=== PATIENT | male | born 1950 | race African-American/Black ===

== ENCOUNTER 2016-07-11 12:36 | Emergency (ER) | payer OTHER, MEDICARE ==
[2016-07-11] MEDS ORDERED: NORMAL SALINE 1000 ML 1,000 ML IV ONE (13:01)
--- NOTE | 2016-07-11 13:17 | ER Document Report ---
ED General - General Chief Complaint: Altered Mental Status Stated Complaint: POSSIBLE STROKE Time seen by provider: 12:50 Mode of Arrival: Medic Information source: Relative Notes: 65-year-old male presents to emergency department via EMS after called reporting that the patient slumped over in bed. The initial history obtained by EMS was that the patient had a new A fascia in the right lower extremity weakness and he presented as a code stroke. 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 reports that the patient had been sitting up in bed and then slumped over to one side in bed but did not fall or strike his head. Family reports the patient is at his baseline now. The patient still has a persistent aphasia and is not able to answer yes or no but does seem to point to his periumbilical region as if she might be having discomfort there. Family reports patient was in his usual state of health yesterday. They report his current physician is the [facility] in [place] he is supposed to be seeing Dr. Brito with a new [facility] locally in the near future. Family reports he has not recently had fever, cough, or vomiting and other history is unobtainable from patient. Patient appears to urinate on himself at some point this morning Physical Exam: General: Alert, appears well. Somewhat agitated but is mainly seems to be frustration from his inability to speak HEENT: Normocephalic. Atraumatic. PERRLA. Extraocular movements intact. Oropharynx clear. Membranes moist Neck: Supple. Non-tender. JVD no carotid bruits Respiratory: No respiratory distress. Clear and equal breath sounds bilaterally. Well-healed midline sternal incision Cardiovascular: Regular rate and rhythm. PMI not displaced Abdominal: Normal Inspection. Soft, non-tender. No distension. Normal Bowel Sounds. Back: Non-tender. No deformity or step off. Extremities. All warm with 2+ pulses no cyanosis no edema no Homans sign bilaterally Neurological: Patient's has some right-sided neglect but no true gaze deviation to the left. No facial droop is apparent now though EMS reports he did have a prominent right facial droop earlier. Speech is garbled and incoherent there is no tongue deviation to either side. Patient cannot cooperate or follow instructions with formal neurologic testing but is observed to move his left upper extremity with full strength and is able to lift his left lower extremity against gravity. He makes essentially no use of his right upper extremity and only minimal use of his right lower extremity Skin: Warm. Dry. Normal color. TRAVEL OUTSIDE OF THE [place] IN LAST 30 DAYS: No - Related Data Allergies/Adverse Reactions: ibuprofen [From Motrin] Allergy (Severe, Verified 01/04/16 21:19) lips swelling, genitalia swelling, eyes swelling Past Medical History - Social History Smoking Status: Former Smoker Family History: Other - Unable to obtain due to aphasia - Past Medical History Cardiac Medical History: Reports: Hx Coronary Artery Disease, Hx Hypercholesterolemia, Hx Hypertension Denies: Hx Heart Attack Pulmonary Medical History: Denies: Hx Asthma, Hx Bronchitis, Hx COPD, Hx Pneumonia Neurological Medical History: Denies: Hx Cerebrovascular Accident, Hx Seizures Endocrine Medical History: Reports: Hx Diabetes Mellitus Type 1, Hx Diabetes Mellitus Type 2. Denies: Hx Hypothyroidism Renal/ Medical History: Denies: Hx End Stage Renal Disease, Hx Renal Insufficiency GI Medical History: Denies: Hx Gastritis, Hx Gastroesophageal Reflux Disease Musculoskeltal Medical History: Denies Hx Arthritis Past Surgical History: Reports: Hx Orthopedic Surgery - both feet, both knees, back L3 and 5. Denies: Hx Pacemaker - Immunizations Immunizations up to date: Yes Hx Diphtheria, Pertussis, Tetanus Vaccination: Yes Hx Pneumococcal Vaccination: 03/24/12 Review of Systems - Review of Systems -: Yes ROS unobtainable due to patient's medical condition Physical Exam - Vital signs Vitals: Temp Pulse Ox 98.1 F 99 07/11/16 12:50 07/11/16 12:50 Course - Re-evaluation Re-evalutation: 07/11/16 17:29 Family reports the patient has recently been in his baseline state of health prior to the episode this morning. They report he seems back to normal now. 07/11/16 19:19 Patient has remained hemodynamically stable during his stay in the emergency department with no change in his neurologic exam. has been with them in her reports that he seems normal to her she now thinks that he might have taken his warning medicines on an empty stomach and that may be responsible for the episode she saw this morning. A case she is eating now and she is comfortable with discharge. She reports he has no physician currently but is supposed to see Dr. Brito at the [facility] on July 17 nerve reinforced the need for that appointment to be. Also asked her to call 911 or bring him back to emergency department for any further problems but this point I found nothing on this thorough workup for which she requires admission or other treatment - Vital Signs Vital signs: Temp Pulse Resp BP Pulse Ox 98.2 F 14 146/82 H 100 07/11/16 18:50 07/11/16 17:01 07/11/16 17:01 07/11/16 17:01 - Laboratory Result Diagrams: 07/11/16 13:15 07/11/16 14:23 Laboratory results interpreted by me: 07/11/16 07/11/16 07/11/16 13:15 14:23 15:10 RBC 4.17 L Hgb 10.8 L Hct 33.8 L MCH 25.8 L MCHC 31.8 L RDW 16.1 H Monocytes % 13.5 H Carbon Dioxide 31 H Glucose 128 H Total Protein 6.2 L Albumin 3.4 L Urine Blood SMALL H - Diagnostic Test Radiology reviewed: Image reviewed, Reports reviewed - EKG Interpretation by Me Additional EKG results interpreted by me: 07/11/16 13:17 EKG reviewed by myself shows sinus rhythm at 78 with inverted T-wave in V1 and 2 not significantly different than 01/05/2016 Discharge - Discharge Clinical Impression: Syncope Qualifiers: Syncope type: unspecified Qualified Code(s): R55 - Syncope and collapse Condition: Stable Disposition: HOME, SELF-CARE Additional Instructions: Syncopal Episode Syncope (fainting or near-fainting) can occur from many different health problems. Or it can be a simple fainting spell requiring no treatment. It is safe for you to go home, but further evaluation will likely be necessary. Your work-up may include tests for internal bleeding, heart disease, medication problems, or near-strokes. Tests are not always required, however, depending on the nature of your problem. The warning signs of an impending faint include: dizziness, lightheadedness , nausea, hot flashes, tingling, and weakness. If this happens, lay down and put your feet up, then wait until all of these symptoms have passed before standing up again. If these episodes become recurrent, or if you develop chest pain, heart palpitations, mental confusion, blurred vision, or headache, then you should call the physician, or go to the emergency room. See Dr. Brito on Saturday as scheduled. All 1 or return to emergency department for any other episodes of passing out or other problems
[2016-07-11 13:37] LABS: PARTIAL THROMBOPLASTIN TIME 27.4 SEC (23.5-35.8)
[2016-07-11 13:40] LABS: ABSOLUTE EOSINOPHILS # (AUTO) 0.1 10^3/uL (0.0-0.6); ABSOLUTE LYMPHOCYTES (AUTO) 0.8 10^3/uL (0.5-4.7); ABSOLUTE MONOCYTES (AUTO) 0.7 10^3/uL (0.1-1.4); ABSOLUTE NEUT (AUTO) 3.4 10^3/uL (1.7-8.2); BASOPHILS % (AUTO) 0.6 % (0-2); EOSINOPHILS % (AUTO) 1.5 % (0-6); HEMATOCRIT 33.8 % (37.9-51.0); HEMOGLOBIN 10.8 g/dL (13.5-17.0); HGB HCT DIFFERENCE -1.4; LYMPHOCYTES % (AUTO) 15.2 % (13-45); MEAN CORPUSCULAR HEMOGLOBIN 25.8 pg (27.0-33.4); MEAN CORPUSCULAR HGB CONC 31.8 g/dL (32.0-36.0); MEAN CORPUSCULAR VOLUME 81 fl (80-97); MONOCYTES % (AUTO) 13.5 % (3-13); PROTHROMBIN TIME 13.3 SEC (11.4-15.4); RED BLOOD COUNT 4.17 10^6/uL (4.35-5.55); RED CELL DISTRIBUTION WIDTH 16.1 % (11.5-14.0); SEGMENTED NEUTROPHILS % (AUTO) 69.2 % (42-78)
[2016-07-11 15:14] LABS: ALANINE AMINOTRANSFERASE 34 U/L (21-72); ALBUMIN 3.4 g/dL (3.5-5.0); ALKALINE PHOSPHATASE 78 U/L (38-126); ANION GAP 13 (5-19); ASPARTATE AMINO TRANSFERASE 24 U/L (17-59); BILIRUBIN,TOTAL 1.1 mg/dL (0.2-1.3); BLOOD UREA NITROGEN 14 mg/dL (7-20); CALCIUM 8.5 mg/dL (8.4-10.2); CARBON DIOXIDE 31 mmol/L (22-30); CHLORIDE 98 mmol/L (98-107); CREATINE KINASE 62 U/L (55-170); CREATININE RESULT 1.01 mg/dL (0.52-1.25); GLUCOSE 128 mg/dL (75-110); POTASSIUM 3.7 mmol/L (3.6-5.0); SODIUM 141.5 mmol/L (137-145); TOTAL PROTEIN 6.2 g/dL (6.3-8.2)
[2016-07-11 15:21] LABS: CREATINE KINASE MB 0.29 ng/mL (<4.55)
[2016-07-11 15:24] LABS: TROPONIN I < 0.012 ng/mL
--- NOTE | 2016-07-11 18:38 | EKG REPORT ---
SEVERITY:- ABNORMAL ECG - SINUS RHYTHM INFERIOR INFARCT, OLD IRBBB. : Confirmed by: Michael Colindres MD 11-Jul-2016 18:37:32
[2016-07-11 18:48] LABS: APPEARANCE,URINE CLEAR; BILIRUBIN,URINE NEGATIVE (NEGATIVE); GLUCOSE, URINE NEGATIVE (NEGATIVE); KETONES,URINE NEGATIVE (NEGATIVE); LEUKOCYTE ESTERASE,URINE NEGATIVE (NEGATIVE); NITRITE,URINE NEGATIVE (NEGATIVE); PROTEIN,URINE NEGATIVE (NEGATIVE); URINE SPECIFIC GRAVITY 1.014; UROBILINOGEN,URINE NEGATIVE mg/dL (<2.0)
[2016-07-11 19:30] VITALS: BP 174/79
== END 2016-07-11 19:50 | disposition home or self-care (01) ==
LOC: ER 12:36
DX: R55 Syncope and collapse (principal); R41.82 Altered mental status, unspecified; Z87.891 Personal history of nicotine dependence
CPT/HCPCS: 93005; 99285; 96360; 36415; 87086; 82553; 82550; 85025; 85610; 85730; 80053; 81001; 84484; 71010; 70450; 74177; 93010; J7030

== ENCOUNTER 2017-01-17 11:55 | Emergency (ER) | payer OTHER, MEDICARE ==
[2017-01-17 12:25] LABS: ABSOLUTE EOSINOPHILS # (AUTO) 0.1 10^3/uL (0.0-0.6); ABSOLUTE LYMPHOCYTES (AUTO) 1.1 10^3/uL (0.5-4.7); ABSOLUTE MONOCYTES (AUTO) 0.3 10^3/uL (0.1-1.4); ABSOLUTE NEUT (AUTO) 2.2 10^3/uL (1.7-8.2); BASOPHILS % (AUTO) 0.7 % (0-2); EOSINOPHILS % (AUTO) 1.7 % (0-6); HEMATOCRIT 31.2 % (37.9-51.0); HEMOGLOBIN 10.4 g/dL (13.5-17.0); LYMPHOCYTES % (AUTO) 30.3 % (13-45); MEAN CORPUSCULAR HGB CONC 33.5 g/dL (32.0-36.0); MEAN CORPUSCULAR VOLUME 81 fl (80-97); MONOCYTES % (AUTO) 7.4 % (3-13); RED BLOOD COUNT 3.87 10^6/uL (4.35-5.55); RED CELL DISTRIBUTION WIDTH 16.6 % (11.5-14.0); SEGMENTED NEUTROPHILS % (AUTO) 59.9 % (42-78); WHITE BLOOD COUNT 3.7 10^3/uL (4.0-10.5)
--- NOTE | 2017-01-17 12:32 | RADIOLOGY REPORT (SQ) ---
EXAM DESCRIPTION: CHEST SINGLE VIEW COMPLETED DATE/TIME: 01/17/2017 12:23 pm REASON FOR STUDY: syncope COMPARISON: 07/11/2016 EXAM PARAMETERS: NUMBER OF VIEWS: One view. TECHNIQUE: Single frontal radiographic view of the chest acquired. RADIATION DOSE: NA LIMITATIONS: None. FINDINGS: LUNGS AND PLEURA: No opacities, masses or pneumothorax. No pleural effusion. MEDIASTINUM AND HILAR STRUCTURES: No masses. Contour normal. HEART AND VASCULAR STRUCTURES: Heart normal in size. Normal vasculature. BONES: No acute findings. HARDWARE: CABG. OTHER: No other significant finding. IMPRESSION: NO ACUTE RADIOGRAPHIC FINDING IN THE CHEST. TECHNICAL DOCUMENTATION: JOB ID: [id number]
[2017-01-17 12:41] LABS: ALANINE AMINOTRANSFERASE 32 U/L (21-72); ALBUMIN 3.2 g/dL (3.5-5.0); ALKALINE PHOSPHATASE 71 U/L (38-126); ANION GAP 11 (5-19); ASPARTATE AMINO TRANSFERASE 20 U/L (17-59); BILIRUBIN,DIRECT 0.2 mg/dL (0.0-0.4); BILIRUBIN,TOTAL 0.9 mg/dL (0.2-1.3); BLOOD UREA NITROGEN 17 mg/dL (7-20); CALCIUM 7.8 mg/dL (8.4-10.2); CARBON DIOXIDE 22 mmol/L (22-30); CHLORIDE 107 mmol/L (98-107); CREATININE RESULT 1.12 mg/dL (0.52-1.25); GLUCOSE 240 mg/dL (75-110); POTASSIUM 3.5 mmol/L (3.6-5.0)
[2017-01-17 12:53] LABS: TROPONIN I < 0.012 ng/mL
[2017-01-17] MEDS ORDERED: NORMAL SALINE 1000 ML 1,000 ML IV ONE (13:01)
--- NOTE | 2017-01-17 13:01 | ER Document Report ---
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 He slumped over while sitting in the heat he could not be aroused. He also had bowel and bladder incontinence during this time, but family does not think that he had any seizure activity. Patient was given 2 L IV fluids prior to arrival by EMS and family says that he is back to baseline. He was started on 10 mg amlodipine yesterday by primary care physician, but no other new medications. Patient denies chest pain, shortness of breath, nausea, vomiting, fevers, new back pain, hemoptysis or abdominal pain. TRAVEL OUTSIDE OF THE [place] IN LAST 30 DAYS: No - Related Data Allergies/Adverse Reactions: ibuprofen [From Zoombu] Allergy (Severe, Verified 01/17/17 12:54) lips swelling, genitalia swelling, eyes swelling Home Medications: Current Home Medications Acetaminophen [Pain Reliever] 1,000 mg PO BID 01/17/17 [History] Amlodipine Besylate 10 mg PO DAILY 01/17/17 [History] Aspirin [Aspirin 325 mg Tablet] 325 mg PO DAILY 01/17/17 [History] Gabapentin 300 mg PO TID 01/17/17 [History] Omeprazole 20 mg PO QAM 01/17/17 [History] Past Medical History - General Information source: Patient, Relative, Emergency Med Personnel - Social History Smoking Status: Unknown if Ever Smoked Frequency of alcohol use: None Drug Abuse: None Family History: Other - Unable to obtain due to aphasia - Past Medical History Cardiac Medical History: Reports: Hx Coronary Artery Disease, Hx Hypercholesterolemia, Hx Hypertension Denies: Hx Heart Attack Pulmonary Medical History: Denies: Hx Asthma, Hx Bronchitis, Hx COPD, Hx Pneumonia Neurological Medical History: Denies: Hx Cerebrovascular Accident, Hx Seizures Endocrine Medical History: Reports: Hx Diabetes Mellitus Type 1, Hx Diabetes Mellitus Type 2 - diet controlled. Denies: Hx Hypothyroidism Renal/ Medical History: Denies: Hx End Stage Renal Disease, Hx Renal Insufficiency GI Medical History: Denies: Hx Gastritis, Hx Gastroesophageal Reflux Disease Musculoskeltal Medical History: Denies Hx Arthritis Past Surgical History: Reports: Hx Open Heart Surgery - December 2015, Hx Orthopedic Surgery - both feet, both knees, back L3 and 5. Denies: Hx Pacemaker - Immunizations Immunizations up to date: Yes Hx Diphtheria, Pertussis, Tetanus Vaccination: Yes Hx Pneumococcal Vaccination: 03/24/12 Review of Systems - Review of Systems Notes: REVIEW OF SYSTEMS: CONSTITUTIONAL: -fevers, -chills EENT: -eye pain, -difficulty swallowing, -nasal congestion CARDIOVASCULAR:-chest pain, +syncope. RESPIRATORY: -cough, -SOB GASTROINTESTINAL: -abdominal pain, - nausea, -vomiting, -diarrhea GENITOURINARY: -dysuria, -hematuria MUSCULOSKELETAL: -back pain, -neck pain SKIN: -rash or skin lesions. HEMATOLOGIC: -easy bruising or bleeding. LYMPHATIC: -swollen, enlarged glands. NEUROLOGICAL: -altered mental status or loss of consciousness, -headache, - neurologic symptoms PSYCHIATRIC: -anxiety, -depression. ALL OTHER SYSTEMS REVIEWED AND NEGATIVE. Physical Exam - Vital signs Vitals: Resp Pulse Ox 15 96 01/17/17 12:16 01/17/17 12:16 - Notes Notes: PHYSICAL EXAMINATION: GENERAL: Well-appearing, well-nourished and in no acute distress. HEAD: Atraumatic, normocephalic. EYES: Pupils equal round and reactive to light, extraocular movements intact, sclera anicteric, conjunctiva are normal. ENT: nares patent, oropharynx clear without exudates. Moist mucous membranes. NECK: Normal range of motion, supple without lymphadenopathy LUNGS: Breath sounds clear to auscultation bilaterally and equal. No wheezes rales or rhonchi. HEART: Regular rate and rhythm without murmurs ABDOMEN: Soft, nontender, normoactive bowel sounds. No guarding, no rebound. No masses appreciated. EXTREMITIES: Normal range of motion, no pitting or edema. No cyanosis. Strong distal pulses. NEUROLOGICAL: No acute neuro findings. Chronic right-sided weakness PSYCH: Normal mood, normal affect. SKIN: Warm, Dry, normal turgor, no rashes or lesions noted. Course - Re-evaluation Re-evalutation: 66-year-old male presents after brief syncopal episode. No seizure activity witnessed, but he did have loss of bowel and bladder. Lab work all unremarkable and patient blood pressure improved with fluids. He was started on amlodipine yesterday and this may have caused his syncope and low blood pressure. Instructed patient to stop the amlodipine. His bottle was thrown out in the emergency room. Also instructed him to continue to drink plenty of fluids. He is low risk for serious outcomes per [place] Syncope guidelines. The patient to continue to drink plenty of fluids follow-up with his primary care physician for further evaluation and treatment. - Vital Signs Vital signs: Temp Pulse Resp BP Pulse Ox 97.6 F 62 16 93/56 L 95 01/17/17 12:20 01/17/17 12:20 01/17/17 13:01 01/17/17 13:01 01/17/17 13:01 - Laboratory Result Diagrams: 01/17/17 12:03 01/17/17 12:03 Laboratory results interpreted by me: 01/17/17 01/17/17 12:03 12:03 WBC 3.7 L RBC 3.87 L Hgb 10.4 L Hct 31.2 L RDW 16.6 H Potassium 3.5 L Glucose 240 H Calcium 7.8 L Total Protein 6.0 L Albumin 3.2 L Discharge - Discharge Clinical Impression: Syncope Qualifiers: Syncope type: unspecified Qualified Code(s): R55 - Syncope and collapse Condition: Good Disposition: HOME, SELF-CARE Additional Instructions: SYNCOPAL EPISODE: Syncope (fainting or near-fainting) can occur from many different health problems. Or it can be a simple fainting spell requiring no treatment. It is safe for you to go home, but further evaluation will likely be necessary. Your work-up may include tests for internal bleeding, heart disease, medication problems, or near-strokes. Tests are not always required, however, depending on the nature of your problem. The warning signs of an impending faint include: dizziness, lightheadedness , nausea, hot flashes, tingling, and weakness. If this happens, lay down and put your feet up, then wait until all of these symptoms have passed before standing up again. If these episodes become recurrent, or if you develop chest pain, heart palpitations, mental confusion, blurred vision, or headache, then you should call the physician, or go to the emergency room. ALTERED MENTAL STATUS: An altered mental status is a change in the normal functioning of the brain. This alteration of function can range from minor decreased brain function with some forgetfulness and confusion to complete loss of consciousness and coma. There are many possible causes of an altered mental status and include brain injuries such as trauma or strokes, problems with oxygen supply to the brain, fever and infections of the brain and/or elsewhere in the body, metabolic abnormalities such as low or high blood sugar, overdoses or excessive medication ingestion, and mental and psychiatric illnesses. Sometimes the altered mental status resolves and a definite cause is not determined. If a cause for your altered mental status was found, it has likely been corrected. Your evaluation has not shown any condition that requires that you be admitted to the hospital. It is believed that you are safe to lelave and return to your home. If you have a return of your symptoms, you should return for re-evaluation. NORMAL EXAM AND WORKUP: At this time, your examination and workup show no significant abnormality. No significant abnormal physical findings were noted. All laboratory, EKG, and imaging (x-ray, CT scans, ultrasound) studies that were ordered show no significant abnormality. Although your examination and all studies that were ordered showed no significant abnormal finding, there are no examinations and no studies that are 100% accurate. There is always the possibility that some abnormality could exist and not be detected with physical examination or within the limits and capabilities of laboratory and other studies. You should return or follow up as you were instructed on your visit today for further evaluation if your symptoms do not resolve. FOLLOW-UP CARE: If you have been referred to a physician for follow-up care, call the physician s office for an appointment as you were instructed or within the next two days. If you experience worsening or a significant change in your symptoms, notify the physician immediately or return to the Emergency Department at any time for re-evaluation.
[2017-01-17 14:16] VITALS: BP 115/74
--- NOTE | 2017-01-17 17:23 | EKG REPORT ---
SEVERITY:- ABNORMAL ECG - SINUS RHYTHM PROBABLE INFEROLATERAL INFARCT, AGE INDETERM : Confirmed by: Susana Lazar MD 17-Jan-2017 17:23:03
== END 2017-01-17 14:35 | disposition home or self-care (01) ==
LOC: ER 11:55
DX: R55 Syncope and collapse (principal); I10 Essential (primary) hypertension; E78.5 Hyperlipidemia, unspecified; M54.9 Dorsalgia, unspecified; G89.29 Other chronic pain; Z79.899 Other long term (current) drug therapy
CPT/HCPCS: 93005; 99285; 96360; 36415; 82550; 85025; 80053; 84484; 83880; 71010; 93010; J7030

== ENCOUNTER 2017-04-15 21:58 | Emergency (ER) | payer OTHER, MEDICARE ==
[2017-04-16] MEDS ORDERED: ASPIRIN 81 MG TABLET, CHEWABLE PO ONE
--- NOTE | 2017-04-16 | ER Document Report ---
ED Medical Screen (RME) - General Chief Complaint: Cold Symptoms Stated Complaint: FLU LIKE SYMPTOMS Time Seen by Provider: 04/15/17 23:59 Notes: Patient is a 66-year-old male who presents with his to the emergency department complaining of chest discomfort and cough. She states it has been going on for the past 2 days. Tonight he was complaining more of chest pain with coughing. Patient has previous history of MD with CABG with complication of a CVA. [facility] Patient is chest pain-free at this time. TRAVEL OUTSIDE OF THE [place] IN LAST 30 DAYS: No - Related Data Allergies/Adverse Reactions: ibuprofen [From Motrin] Allergy (Severe, Verified 01/17/17 12:54) lips swelling, genitalia swelling, eyes swelling Past Medical History - Past Medical History Cardiac Medical History: Reports: Hx Coronary Artery Disease, Hx Hypercholesterolemia, Hx Hypertension Denies: Hx Heart Attack Pulmonary Medical History: Denies: Hx Asthma, Hx Bronchitis, Hx COPD, Hx Pneumonia Neurological Medical History: Denies: Hx Cerebrovascular Accident, Hx Seizures Endocrine Medical History: Reports: Hx Diabetes Mellitus Type 1, Hx Diabetes Mellitus Type 2 - diet controlled. Denies: Hx Hypothyroidism Renal/ Medical History: Denies: Hx End Stage Renal Disease, Hx Peritoneal Dialysis, Hx Renal Insufficiency GI Medical History: Denies: Hx Gastritis, Hx Gastroesophageal Reflux Disease Musculoskeltal Medical History: Denies Hx Arthritis Past Surgical History: Reports: Hx Open Heart Surgery - December 2015, Hx Orthopedic Surgery - both feet, both knees, back L3 and 5. Denies: Hx Pacemaker - Immunizations Immunizations up to date: Yes Hx Diphtheria, Pertussis, Tetanus Vaccination: Yes Physical Exam - Vital signs Vitals: Resp 20 04/15/17 23:52 - General General appearance: Alert In distress: None - Respiratory Respiratory status: No respiratory distress Chest status: Nontender Breath sounds: Normal Chest palpation: Normal - Cardiovascular Rhythm: Regular Heart sounds: Normal auscultation, S1 appreciated, S2 appreciated Gallop: None auscultated Pulses: Normal: Radial Course - Vital Signs Vital signs: Temp Pulse Resp BP Pulse Ox 20 04/15/17 23:52
[2017-04-16 00:22] LABS: ABSOLUTE EOSINOPHILS # (AUTO) 0.1 10^3/uL (0.0-0.6); ABSOLUTE LYMPHOCYTES (AUTO) 0.9 10^3/uL (0.5-4.7); ABSOLUTE MONOCYTES (AUTO) 0.4 10^3/uL (0.1-1.4); ABSOLUTE NEUT (AUTO) 6.2 10^3/uL (1.7-8.2); BASOPHILS % (AUTO) 0.6 % (0-2); EOSINOPHILS % (AUTO) 0.9 % (0-6); HEMOGLOBIN 13.3 g/dL (13.5-17.0); HGB HCT DIFFERENCE -0.1; MEAN CORPUSCULAR HEMOGLOBIN 26.8 pg (27.0-33.4); MEAN CORPUSCULAR HGB CONC 33.2 g/dL (32.0-36.0); MEAN CORPUSCULAR VOLUME 81 fl (80-97); MONOCYTES % (AUTO) 5.4 % (3-13); RED BLOOD COUNT 4.96 10^6/uL (4.35-5.55); RED CELL DISTRIBUTION WIDTH 15.6 % (11.5-14.0); SEGMENTED NEUTROPHILS % (AUTO) 81.1 % (42-78); WHITE BLOOD COUNT 7.7 10^3/uL (4.0-10.5)
[2017-04-16] MEDS ORDERED: HYDROCODONE/ACETAMINOPHEN 5-325 MG TABLET PO ONE (00:42)
[2017-04-16] MEDS ORDERED: ONDANSETRON 4 MG TAB.RAPDIS PO ONE (00:42)
--- NOTE | 2017-04-16 00:43 | ER Document Report ---
ED General - General Chief Complaint: Cold Symptoms Stated Complaint: FLU LIKE SYMPTOMS Time Seen by Provider: 04/15/17 23:59 Notes: Patient is a 66-year-old male that comes emergency department for chief complaint of 2 days of cough and pain in his chest. 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 Patient does not smoke, he does not have asthma or COPD. No fevers reported. No vomiting, patient is eating slightly less since yesterday. Past medical history of hypertension, type 2 diabetes, he also takes 20 mg of Lasix daily. [facility]. TRAVEL OUTSIDE OF THE [place] IN LAST 30 DAYS: No - Related Data Allergies/Adverse Reactions: ibuprofen [From Motrin] Allergy (Severe, Verified 01/17/17 12:54) lips swelling, genitalia swelling, eyes swelling Past Medical History - General Information source: Patient, Relative - Social History Smoking Status: Former Smoker Frequency of alcohol use: None Drug Abuse: None Lives with: Family Family History: Reviewed & Not Pertinent, Other - Unable to obtain due to aphasia - Past Medical History Cardiac Medical History: Reports: Hx Coronary Artery Disease, Hx Hypercholesterolemia, Hx Hypertension Denies: Hx Heart Attack Pulmonary Medical History: Denies: Hx Asthma, Hx Bronchitis, Hx COPD, Hx Pneumonia Neurological Medical History: Denies: Hx Cerebrovascular Accident, Hx Seizures Endocrine Medical History: Reports: Hx Diabetes Mellitus Type 2 - diet controlled. Denies: Hx Hypothyroidism Renal/ Medical History: Denies: Hx End Stage Renal Disease, Hx Peritoneal Dialysis, Hx Renal Insufficiency GI Medical History: Denies: Hx Gastritis, Hx Gastroesophageal Reflux Disease Musculoskeltal Medical History: Denies Hx Arthritis Past Surgical History: Reports: Hx Open Heart Surgery - December 2015, Hx Orthopedic Surgery - both feet, both knees, back L3 and 5. Denies: Hx Pacemaker - Immunizations Immunizations up to date: Yes Hx Diphtheria, Pertussis, Tetanus Vaccination: Yes Hx Pneumococcal Vaccination: 03/24/12 Review of Systems - Review of Systems Constitutional: No symptoms reported EENT: No symptoms reported Cardiovascular: See HPI Respiratory: See HPI Gastrointestinal: No symptoms reported Genitourinary: No symptoms reported Male Genitourinary: No symptoms reported Musculoskeletal: No symptoms reported Skin: No symptoms reported Hematologic/Lymphatic: No symptoms reported Neurological/Psychological: No symptoms reported Physical Exam - Vital signs Vitals: Resp 20 04/15/ 23:52 Interpretation: Normal - General General appearance: Appears well, Alert In distress: None - HEENT Head: Normocephalic, Atraumatic Eyes: Normal Pupils: PERRL - Respiratory Respiratory status: No respiratory distress. No: Respiratory distress, Tachypnea Chest status: Tender - There is some tenderness with palpation over the general chest wall, nonspecific, no induration, deformity, or other abnormalities noted Breath sounds: Nonproductive cough - Occasional congested sounding nonproductive cough. No: Decreased air movement, Rales, Rhonchi, Stridor, Wheezing Chest palpation: Normal - Cardiovascular Rhythm: Regular. No: Tachycardia Heart sounds: Normal auscultation, S1 appreciated, S2 appreciated Murmur: No - Abdominal Inspection: Normal Distension: No distension Bowel sounds: Normal Tenderness: Nontender. No: Tender, Guarding Organomegaly: No organomegaly - Back Back: Normal, Nontender. No: Tender - Extremities General upper extremity: Normal inspection, Nontender, Normal color, Normal ROM , Normal temperature General lower extremity: Normal inspection, Nontender, Normal color, Normal ROM , Normal temperature, Normal weight bearing. No: Madi's sign - Neurological Neuro grossly intact: Yes Cognition: Normal Orientation: AAOx4 [place] Coma Scale Eye Opening: Spontaneous [place] Coma Scale Verbal: Oriented [place] Coma Scale Motor: Obeys Commands [place] Coma Scale Total: 15 Speech: Normal Motor strength normal: LUE, LLE. No: RUE, RLE Sensory: Normal - Psychological Associated symptoms: Normal affect, Normal mood - Skin Skin Temperature: Warm Skin Moisture: Dry Skin Color: Normal Course - Re-evaluation Re-evalutation: Patient is well-appearing on my exam, he has some discomfort and occasional congested cough but no respiratory distress, no fever, no hypoxia, no hypotension. Chest x-ray unremarkable. CBC unremarkable. Chemistry shows mild hypernatremia, patient is reportedly still drinking but has been drinking fluids a little less over the past couple of days. Cardiac enzymes negative. Discussed with patient and , they are concerned because of patient's productive cough and the pain with cough, they asked for treatment for both, after discussion agreed to treat patient prophylactically with doxycycline because of patient's age and progression of congested cough over the past 3 days , agreed to give him minimal cough/pain management along with stool softener, discussed follow-up and return precautions in detail, patient and state understanding and agreement. - Vital Signs Vital signs: Temp Pulse Resp BP Pulse Ox 98.1 F 76 18 130/72 H 97 04/16/17 02:40 04/16/17 02:40 04/16/17 02:40 04/16/17 02:40 04/16/17 02:40 - Laboratory Result Diagrams: 04/16/17 00:07 04/16/17 00:07 Laboratory results interpreted by me: 04/16/17 04/16/17 00:07 00:07 Hgb 13.3 L MCH 26.8 L RDW 15.6 H Seg Neutrophils % 81.1 H Lymphocytes % 12.0 L Sodium 149.2 H Glucose 165 H Direct Bilirubin 0.5 H Discharge - Discharge Clinical Impression: Cough Chest pain Qualifiers: Chest pain type: unspecified Qualified Code(s): R07.9 - Chest pain, unspecified Condition: Stable Disposition: HOME, SELF-CARE Additional Instructions: Workup does not show any concerning abnormalities. Pain in the chest is probably from the coughing. I suspect you have bronchitis. Because of congested cough with chest pains, recommendation is to take the antibiotic as prescribed, take the pain/cough medicine only if needed, if you do take it also take the stool softener to avoid constipation. Follow up with your Provider. Return to the ED for any concerning or worsening symptoms including fevers, difficulty breathing, vomiting, etc. Prescriptions: Docusate Sodium [Colace 100 mg Capsule] 100 mg PO ASDIR PRN #30 capsule PRN Reason: Doxycycline Hyclate 100 mg PO BID #14 capsule Hydrocodone/Acetaminophen [[place] 5-325 mg Tablet] 0.5 - 1 tab PO ASDIR #8 tablet Referrals: SAY LORENZANA MD [Primary Care Provider] - Follow up as needed
[2017-04-16 00:48] LABS: ALANINE AMINOTRANSFERASE 51 U/L (21-72); ALBUMIN 4.7 g/dL (3.5-5.0); ALKALINE PHOSPHATASE 91 U/L (38-126); ANION GAP 16 (5-19); ASPARTATE AMINO TRANSFERASE 25 U/L (17-59); BILIRUBIN,DIRECT 0.5 mg/dL (0.0-0.4); BILIRUBIN,TOTAL 0.7 mg/dL (0.2-1.3); BLOOD UREA NITROGEN 20 mg/dL (7-20); CALCIUM 9.4 mg/dL (8.4-10.2); CARBON DIOXIDE 28 mmol/L (22-30); CHLORIDE 105 mmol/L (98-107); CREATINE KINASE 83 U/L (55-170); CREATININE RESULT 1.17 mg/dL (0.52-1.25); GLUCOSE 165 mg/dL (75-110); POTASSIUM 4.1 mmol/L (3.6-5.0); SODIUM 149.2 mmol/L (137-145); TOTAL PROTEIN 8.1 g/dL (6.3-8.2)
[2017-04-16 01:05] LABS: CREATINE KINASE MB 0.38 ng/mL (<4.55)
[2017-04-16 01:11] LABS: TROPONIN I < 0.012 ng/mL
--- NOTE | 2017-04-16 01:17 | RADIOLOGY REPORT (SQ) ---
EXAM DESCRIPTION: CHEST SINGLE VIEW COMPLETED DATE/TIME: 04/16/2017 12:18 am REASON FOR STUDY: chest pain, cough COMPARISON: 01/17/2017. EXAM PARAMETERS: NUMBER OF VIEWS: One view. TECHNIQUE: Single frontal radiographic view of the chest acquired. RADIATION DOSE: NA LIMITATIONS: None. FINDINGS: LUNGS AND PLEURA: No opacities, masses or pneumothorax. No pleural effusion. Moderate isa g volumes. MEDIASTINUM AND HILAR STRUCTURES: No masses. Contour normal. HEART AND VASCULAR STRUCTURES: Heart normal in size. Normal vasculature. BONES: No acute findings. HARDWARE: Median sternotomy. Left upper abdominal clips. OTHER: No other significant finding. IMPRESSION: No acute cardiopulmonary findings. TECHNICAL DOCUMENTATION: JOB ID: [id number]
[2017-04-16 02:53] VITALS: BP 130/72
--- NOTE | 2017-04-16 08:09 | EKG REPORT ---
SEVERITY:- ABNORMAL ECG - SINUS RHYTHM PROBABLE INFERIOR INFARCT, OLD CONSIDER POSTERIOR INFARCT : Confirmed by: Wili Contreras 16-Apr-2017 08:08:18
== END 2017-04-16 02:40 | disposition home or self-care (01) ==
LOC: ER 21:58
DX: R05 Cough (principal); R07.9 Chest pain, unspecified; I25.10 Atherosclerotic heart disease of native coronary artery without angina pectoris; E78.00 Pure hypercholesterolemia, unspecified; Z86.73 Personal history of transient ischemic attack (TIA), and cerebral infarction without residual deficits; Z95.1 Presence of aortocoronary bypass graft; Z88.6 Allergy status to analgesic agent
CPT/HCPCS: 93005; 99284; 36415; 82553; 82550; 85025; 80053; 84484; 71010; 93010; S0119

== ENCOUNTER 2017-05-11 17:18 | Emergency (ER) | payer OTHER, MEDICARE ==
--- NOTE | 2017-05-11 18:23 | ER Document Report ---
ED Syncope and Near Syncope - General Chief Complaint: Syncope Stated Complaint: DIZZY Time Seen by Provider: 05/11/17 17:43 Mode of Arrival: Stretcher Information source: Patient, Relative TRAVEL OUTSIDE OF THE [place] IN LAST 30 DAYS: No - HPI Patient complains to provider of: Nearly fainting Episode witnessed (by whom): Yes Symptoms prior to episode: Dizziness, Sweaty Position/Activity at time of episode: Sitting Quality of pain: No pain Context: Almost passed out Injury location: None Current symptoms: None/feels back to normal Similar symptoms previously: Yes Recently seen / treated by doctor: Yes Notes: Patient is a 66-year-old male with a history of diabetes, hypertension, high cholesterol, [place] and CVA, who presents to the emergency room via EMS for complaints of near syncopal episode with low heart rate and low blood pressure, daughter states that she was called by her mother because patient was sitting at the table, was sweating, pale and "out of it", patient stored to confirm when she arrived at the house several minutes later she did find her father in the state, she took his pulse and states it was low, and initial blood pressure at home was 88/50, patient was recently started on a higher dose of metoprolol, at time of my initial evaluation he reports feeling much better and wants to leave, he does have a history of a CVA with right-sided deficits as well as speech impairment but his daughter is able to understand what he is saying, he is moving all extremities - Related Data Allergies/Adverse Reactions: ibuprofen [From Motrin] Allergy (Severe, Verified 01/17/17 12:54) lips swelling, genitalia swelling, eyes swelling Home Medications: Current Home Medications Fluoxetine HCl 30 mg PO QAM 05/11/17 [History] Furosemide 20 mg PO QAM 05/11/17 [History] Metformin HCl [Metformin HCl ER] 500 mg PO DAILY 05/11/17 [History] Metoprolol Tartrate 12.5 mg PO DAILY 05/11/17 [History] Past Medical History - General Information source: Patient, Relative - Social History Smoking Status: Unknown if Ever Smoked Chew tobacco use (# tins/day): No Frequency of alcohol use: None Drug Abuse: None Family History: Reviewed & Not Pertinent, Other - Unable to obtain due to aphasia Patient has suicidal ideation: No Patient has homicidal ideation: No - Past Medical History Cardiac Medical History: Reports: Hx Coronary Artery Disease, Hx Hypercholesterolemia, Hx Hypertension Denies: Hx Heart Attack Pulmonary Medical History: Denies: Hx Asthma, Hx Bronchitis, Hx COPD, Hx Pneumonia Neurological Medical History: Denies: Hx Cerebrovascular Accident, Hx Seizures Endocrine Medical History: Reports: Hx Diabetes Mellitus Type 1, Hx Diabetes Mellitus Type 2 - diet controlled. Denies: Hx Hypothyroidism Renal/ Medical History: Denies: Hx End Stage Renal Disease, Hx Peritoneal Dialysis, Hx Renal Insufficiency GI Medical History: Denies: Hx Gastritis, Hx Gastroesophageal Reflux Disease Musculoskeltal Medical History: Denies Hx Arthritis Past Surgical History: Reports: Hx Open Heart Surgery - December 2015, Hx Orthopedic Surgery - both feet, both knees, back L3 and 5. Denies: Hx Pacemaker - Immunizations Immunizations up to date: Yes Hx Diphtheria, Pertussis, Tetanus Vaccination: Yes Hx Pneumococcal Vaccination: 03/24/12 Review of Systems - Review of Systems Constitutional: Diaphoresis EENT: No symptoms reported Cardiovascular: See HPI, Syncope - Near syncope Respiratory: No symptoms reported Gastrointestinal: No symptoms reported Genitourinary: No symptoms reported Male Genitourinary: No symptoms reported Musculoskeletal: No symptoms reported Skin: No symptoms reported Hematologic/Lymphatic: No symptoms reported Neurological/Psychological: No symptoms reported -: Yes All other systems reviewed and negative Physical Exam - Vital signs Vitals: Temp Pulse BP Pulse Ox 97.5 F 56 L 101/54 L 98 05/11/17 17:58 05/11/17 17:58 05/11/17 17:58 05/11/17 17:58 Interpretation: Bradycardic - General General appearance: Appears well, Alert In distress: None - HEENT Head: Normocephalic, Atraumatic Eyes: Normal Conjunctiva: Normal Extraocular movements intact: Yes Eyelashes: Normal Pupils: PERRL - Respiratory Respiratory status: No respiratory distress Chest status: Nontender Breath sounds: Normal Chest palpation: Normal - Cardiovascular Rhythm: Regular Heart sounds: Normal auscultation Murmur: No - Abdominal Inspection: Normal Distension: No distension Bowel sounds: Normal Tenderness: Nontender Organomegaly: No organomegaly - Back Back: Normal, Nontender - Extremities General upper extremity: Normal inspection, Nontender, Normal color, Normal ROM , Normal temperature General lower extremity: Normal inspection, Nontender, Normal color, Normal ROM , Normal temperature, Normal weight bearing. No: Madi's sign - Neurological Cognition: Normal Orientation: AAOx4 [place] Coma Scale Eye Opening: Spontaneous [place] Coma Scale Verbal: Oriented [place] Coma Scale Motor: Obeys Commands [place] Coma Scale Total: 15 Speech: Dysarthria Motor strength normal: LUE, LLE. No: RUE - 4 out of 5 strength, RLE - 5 strength Sensory: Normal - Psychological Associated symptoms: Normal affect, Normal mood - Skin Skin Temperature: Warm Skin Moisture: Dry Skin Color: Normal Course - Re-evaluation Re-evalutation: 05/11/17 23:53 Lab findings show elevated creatinine at 1.7, symptoms likely related to orthostatic hypotension from dehydration, IV fluids were given and patient was discharged with instructions to hold the additional dose of metoprolol and follow-up with the primary care provider in the next 2-3 days, or return if symptoms worsen, patient and daughter at bedside acknowledge understanding and agreement with this plan - Vital Signs Vital signs: Temp Pulse Resp BP Pulse Ox 97.5 F 56 L 16 127/69 H 97 05/11/17 17:58 05/11/17 18:18 05/11/17 20:01 05/11/17 20:01 05/11/17 20:01 - Laboratory Result Diagrams: 05/11/17 19:02 05/11/17 19:02 Laboratory results interpreted by me: 05/11/17 05/11/17 19:02 19:02 Hgb 12.0 L Hct 35.6 L RDW 15.9 H Seg Neutrophils % 83.4 H Lymphocytes % 11.2 L Sodium 145.6 H BUN 27 H Creatinine 1.70 H Est GFR ( Amer) 49 L Est GFR (Non-Af Amer) 40 L Glucose 224 H Creatine Kinase 47 L - EKG Interpretation by [place] EKG shows normal: Sinus rhythm Rate: Bradycardia Discharge - Discharge Clinical Impression: Dehydration, Near syncope, Acute renal insufficiency Condition: Stable Disposition: HOME, SELF-CARE Instructions: Dehydration ([facility]), Near Syncopal Episode ([facility]) Additional Instructions: Follow up with your primary care provider in one to 2 days. Return to the emergency room immediately if symptoms worsen or any additional concerns. Referrals: SAY LORENZANA MD [Primary Care Provider] - Follow up as needed
[2017-05-11 19:15] LABS: ABSOLUTE EOSINOPHILS # (AUTO) 0.1 10^3/uL (0.0-0.6); ABSOLUTE LYMPHOCYTES (AUTO) 0.8 10^3/uL (0.5-4.7); ABSOLUTE MONOCYTES (AUTO) 0.3 10^3/uL (0.1-1.4); ABSOLUTE NEUT (AUTO) 6.1 10^3/uL (1.7-8.2); BASOPHILS % (AUTO) 0.6 % (0-2); EOSINOPHILS % (AUTO) 0.7 % (0-6); HEMATOCRIT 35.6 % (37.9-51.0); HGB HCT DIFFERENCE 0.4; LYMPHOCYTES % (AUTO) 11.2 % (13-45); MEAN CORPUSCULAR HEMOGLOBIN 27.5 pg (27.0-33.4); MEAN CORPUSCULAR HGB CONC 33.7 g/dL (32.0-36.0); MEAN CORPUSCULAR VOLUME 82 fl (80-97); MONOCYTES % (AUTO) 4.1 % (3-13); RED BLOOD COUNT 4.36 10^6/uL (4.35-5.55); RED CELL DISTRIBUTION WIDTH 15.9 % (11.5-14.0); SEGMENTED NEUTROPHILS % (AUTO) 83.4 % (42-78); WHITE BLOOD COUNT 7.4 10^3/uL (4.0-10.5)
[2017-05-11 19:56] LABS: ALANINE AMINOTRANSFERASE 33 U/L (21-72); ALBUMIN 3.9 g/dL (3.5-5.0); ALKALINE PHOSPHATASE 74 U/L (38-126); ANION GAP 14 (5-19); ASPARTATE AMINO TRANSFERASE 20 U/L (17-59); BILIRUBIN,DIRECT 0.3 mg/dL (0.0-0.4); BILIRUBIN,TOTAL 0.5 mg/dL (0.2-1.3); BLOOD UREA NITROGEN 27 mg/dL (7-20); CALCIUM 8.9 mg/dL (8.4-10.2); CARBON DIOXIDE 25 mmol/L (22-30); CHLORIDE 107 mmol/L (98-107); CREATINE KINASE 47 U/L (55-170); GLUCOSE 224 mg/dL (75-110); POTASSIUM 4.6 mmol/L (3.6-5.0); SODIUM 145.6 mmol/L (137-145); TOTAL PROTEIN 6.8 g/dL (6.3-8.2)
[2017-05-11] MEDS ORDERED: NORMAL SALINE 1000 ML 1,000 ML IV PRN (20:03)
[2017-05-11 20:07] LABS: CREATINE KINASE MB 0.35 ng/mL (<4.55)
[2017-05-11 20:10] LABS: TROPONIN I < 0.012 ng/mL
[2017-05-11 21:02] VITALS: BP 127/69
--- NOTE | 2017-05-12 09:21 | EKG REPORT ---
SEVERITY:- ABNORMAL ECG - SINUS RHYTHM PROBABLE INFERIOR INFARCT, OLD ANTERIOR T WAVE INVERSION : Confirmed by: Wili Contreras 12-May-2017 09:21:00
== END 2017-05-11 21:02 | disposition home or self-care (01) ==
LOC: ER 17:18
DX: E86.0 Dehydration (principal); R55 Syncope and collapse; N28.9 Disorder of kidney and ureter, unspecified; R42 Dizziness and giddiness; I25.10 Atherosclerotic heart disease of native coronary artery without angina pectoris; E78.00 Pure hypercholesterolemia, unspecified; I10 Essential (primary) hypertension; E11.9 Type 2 diabetes mellitus without complications; Z88.6 Allergy status to analgesic agent
CPT/HCPCS: 93005; 99284; 96360; 36415; 82553; 82550; 85025; 80053; 84484; 93010; J7030

== ENCOUNTER 2018-08-16 14:16 | Inpatient (IN) | payer OTHER, MEDICARE ==
[2018-08-16 15:02] LABS: INTERNATIONAL RATION (INR) 1.04; PROTHROMBIN TIME 14.1 SEC (11.4-15.4)
[2018-08-16 15:03] LABS: PARTIAL THROMBOPLASTIN TIME 33.7 SEC (23.5-35.8)
[2018-08-16 15:04] LABS: ABSOLUTE BASOPHILS # (AUTO) 0.1 10^3/uL (0.0-0.2); ABSOLUTE MONOCYTES (AUTO) 0.9 10^3/uL (0.1-1.4); BASOPHILS % (AUTO) 0.6 % (0-2); EOSINOPHILS % (AUTO) 0.1 % (0-6); HEMATOCRIT 38.3 % (37.9-51.0); HEMOGLOBIN 12.9 g/dL (13.5-17.0); LYMPHOCYTES % (AUTO) 7.2 % (13-45); MEAN CORPUSCULAR HEMOGLOBIN 27.3 pg (27.0-33.4); MEAN CORPUSCULAR HGB CONC 33.6 g/dL (32.0-36.0); MEAN CORPUSCULAR VOLUME 81 fl (80-97); MONOCYTES % (AUTO) 6.5 % (3-13); PLATELET COUNT 254 10^3/uL (150-450); RED BLOOD COUNT 4.72 10^6/uL (4.35-5.55); SEGMENTED NEUTROPHILS % (AUTO) 85.6 % (42-78); TOTAL CELLS COUNTED % (AUTO) 100 %
[2018-08-16 15:30] LABS: ALANINE AMINOTRANSFERASE 11 U/L (21-72); ALBUMIN 4.7 g/dL (3.5-5.0); ALKALINE PHOSPHATASE 88 U/L (38-126); ANION GAP 10 (5-19); ASPARTATE AMINO TRANSFERASE 37 U/L (17-59); BILIRUBIN,DIRECT 0.3 mg/dL (0.0-0.4); BILIRUBIN,TOTAL 1.5 mg/dL (0.2-1.3); BLOOD UREA NITROGEN 16 mg/dL (7-20); CALCIUM 9.2 mg/dL (8.4-10.2); CARBON DIOXIDE 29 mmol/L (22-30); CHLORIDE 103 mmol/L (98-107); CREATINE KINASE 787 U/L (55-170); GLUCOSE 138 mg/dL (75-110); POTASSIUM 3.8 mmol/L (3.6-5.0); SODIUM 142.2 mmol/L (137-145); TOTAL PROTEIN 8.3 g/dL (6.3-8.2)
[2018-08-16 15:38] LABS: CREATINE KINASE MB 0.91 ng/mL (<4.55); TROPONIN I 0.032 ng/mL
--- NOTE | 2018-08-16 15:57 | ER Document Report ---
ED Dizziness/Weakness - General Chief Complaint: General Weakness Stated Complaint: WEAKNESS Time Seen by Provider: 08/16/18 15:06 Notes: 68-year-old male history of previous stroke affecting his whole right side, inability to talk but does understand and comprehend. Is ambulatory with a cane. Family member states that he has been coughing a lot recently and increased weakness. he denies any pain at this time. TRAVEL OUTSIDE OF THE [place] IN LAST 30 DAYS: No - HPI Patient complains to provider of: Weakness Onset: This morning Onset/Duration: Gradual Quality of pain: Achy Severity: Moderate Associated symptoms: Other - Coughing - Related Data Allergies/Adverse Reactions: ibuprofen [From Motrin] Allergy (Severe, Verified 01/17/17 12:54) lips swelling, genitalia swelling, eyes swelling Past Medical History - General Information source: Patient, Relative - Social History Smoking Status: Unknown if Ever Smoked Frequency of alcohol use: None Drug Abuse: None Lives with: Family Family History: Reviewed & Not Pertinent, Other - Unable to obtain due to aphasia - Past Medical History Cardiac Medical History: Reports: Hx Coronary Artery Disease, Hx Hyperc holesterolemia, Hx Hypertension Denies: Hx Heart Attack Pulmonary Medical History: Denies: Hx Asthma, Hx Bronchitis, Hx COPD, Hx Pneumonia Neurological Medical History: Denies: Hx Cerebrovascular Accident, Hx Seizures Endocrine Medical History: Reports: Hx Diabetes Mellitus Type 1, Hx Diabetes Mellitus Type 2 - diet controlled. Denies: Hx Hypothyroidism Renal/ Medical History: Denies: Hx End Stage Renal Disease, Hx Peritoneal Dialysis, Hx Renal Insufficiency GI Medical History: Denies: Hx Gastritis, Hx Gastroesophageal Reflux Disease Musculoskeletal Medical History: Denies Hx Arthritis Past Surgical History: Reports: Hx Open Heart Surgery - December 2015, Hx Orthopedic Surgery - both feet, both knees, back L3 and 5. Denies: Hx Pacemaker - Immunizations Immunizations up to date: Yes Hx Diphtheria, Pertussis, Tetanus Vaccination: Yes Hx Pneumococcal Vaccination: 03/24/12 Review of Systems - Review of Systems Constitutional: Weakness. denies: Fever, Malaise EENT: denies: Double vision, Difficulty swallowing, Mouth pain Cardiovascular: denies: Chest pain, Palpitations, Lightheaded Respiratory: Cough, Short of breath. denies: Hurts to breathe Gastrointestinal: denies: Abdominal pain, Diarrhea, Nausea Genitourinary: denies: Burning, Dysuria, Discharge Musculoskeletal: denies: Back pain, Muscle pain, Leg swelling Skin: denies: Change in color, Dryness, Lesions, Lumps, Rash Hematologic/Lymphatic: denies: Anemia, Blood clots, Easy bleeding, Easy bruising Neurological/Psychological: Weakness. denies: Confusion, Dementia Physical Exam - Vital signs Vitals: Resp Pulse Ox 21 H 98 08/16/18 15:05 08/16/18 15:05 Interpretation: Normal - General General appearance: Appears well, Alert - HEENT Head: Normocephalic, Atraumatic Eyes: Normal Pupils: PERRL - Respiratory Respiratory status: No respiratory distress Chest status: Nontender Breath sounds: Normal Chest palpation: Normal - Cardiovascular Rhythm: Regular Heart sounds: Normal auscultation Murmur: No - Abdominal Inspection: Normal Distension: No distension Bowel sounds: Normal Tenderness: Nontender Organomegaly: No organomegaly - Back Back: Normal, Nontender - Extremities General upper extremity: Normal inspection, Nontender, Normal color, Normal ROM, Normal temperature, Other - Contracture noted of the right upper extremity General lower extremity: Normal inspection, Nontender, Normal color, Normal temperature, Other - Paralysis of the right lower extremity. No: Madi's sign - Neurological Neuro grossly intact: Yes Cognition: Normal [place] Coma Scale Verbal: Oriented [place] Coma Scale Motor: Obeys Commands Speech: Expressive aphasia Motor strength normal: LUE, LLE. No: RUE, RLE Sensory: Normal Notes: he has sequela of previous stroke affecting the right upper extremity and right lower extremity with contractions patient has no facial asymmetry at this time. Has expressive aphasia. Patient has no pronator drift of the left upper extremity or left lower extremity - Psychological Associated symptoms: Normal affect, Normal mood - Skin Skin Temperature: Warm Skin Moisture: Dry Skin Color: Normal Course - Re-evaluation Re-evalutation: 08/16/18 20:41 Patient reportedly with new onset of weakness. Swallow study was performed at the bedside and patient did fail. Reportedly patient is unable to walk. More likely patient has had a subacute stroke. There is a possibility as well that he could have aspirated as he does have slight elevated WBC count and I was initially concerned on the chest x-ray that he could potentially have a pneumonia. Antibiotics were given. I did consult with hospitalist and we will admit for further workup at this time. - Vital Signs Vital signs: Temp Pulse Resp BP Pulse Ox 18 149/98 H 99 08/16/18 19:01 08/16/18 19:00 08/16/18 19:01 - Laboratory Result Diagrams: 08/16/18 14:45 08/16/18 14:45 Laboratory results interpreted by me: 08/16/18 08/16/18 08/16/18 14:45 14:45 18:49 WBC 14.0 H Hgb 12.9 L RDW 16.0 H Seg Neutrophils % 85.6 H Lymphocytes % 7.2 L Absolute Neutrophils 12.0 H Est GFR (Non-Af Amer) 58 L Glucose 138 H Total Bilirubin 1.5 H ALT 11 L Creatine Kinase 787 H Total Protein 8.3 H Urine Blood MODERATE H Ur Leukocyte Esterase TRACE H Discharge - Discharge Clinical Impression: Weakness Condition: Good Disposition: ADMITTED INPATIENT Admitting Provider: [facility] Admitted: [facility]
--- NOTE | 2018-08-16 16:01 | RADIOLOGY REPORT (SQ) ---
EXAM DESCRIPTION: CT HEAD WITHOUT COMPLETED DATE/TIME: 08/16/2018 3:50 pm REASON FOR STUDY: AMS COMPARISON: 07/11/2016 TECHNIQUE: Axial images acquired through the brain without intravenous contrast. Images reviewed wi th bone, brain and subdural windows. Additional sagittal and coronal reconstructions were generated. Images stored on PACS. All CT scanners at this facility use dose modulation, iterative reconstruction, and/or weight based d osing when appropriate to reduce radiation dose to as low as reasonably achievable (ALARA). [facility]: Dose Right [facility]: CareDose [facility]: Dose Right [facility]: Teradose 4D [facility]: Smart Nukotoys RADIATION DOSE: CT Rad equipment meets quality standard of care and radiation dose reduction techniq ues were employed. CTDIvol: 53.2 mGy. DLP: 1070 mGy-cm.mGy. LIMITATIONS: None. FINDINGS: VENTRICLES: Prominent. CEREBRUM: No masses. No hemorrhage. No midline shift. Old large left MCA infarct. Areas of low de nsity in the white matter most likely due to chronic micro-vascular ischemic change. No evidence for acute infarction. CEREBELLUM: No masses. No hemorrhage. No alteration of density. No evidence for acute infarction. EXTRAAXIAL SPACES: Age-related involutional change. No fluid collections. No masses. ORBITS AND GLOBE: No intra- or extraconal masses. Normal contour of globe without masses. CALVARIUM: No fracture. PARANASAL SINUSES: No fluid or mucosal thickening. SOFT TISSUES: No mass or hematoma. OTHER: No other significant finding. IMPRESSION: Old infarct. No acute findings. EVIDENCE OF ACUTE STROKE: NO. TECHNICAL DOCUMENTATION: JOB ID: [id number] Quality ID # [id number]: Final reports with documentation of one or more dose reduction techniques (e.g., Au tomated exposure control, adjustment of the mA and/or kV according to patient size, use of iterative reconstruction technique) 2010 [employer]- All Rights Reserved Reading location - IP/workstation name: [email or web address]
--- NOTE | 2018-08-16 16:02 | RADIOLOGY REPORT (SQ) ---
EXAM DESCRIPTION: CHEST SINGLE VIEW COMPLETED DATE/TIME: 08/16/2018 3:40 pm REASON FOR STUDY: AMS COMPARISON: 07/11/2016 EXAM PARAMETERS: NUMBER OF VIEWS: One view. TECHNIQUE: Single frontal radiographic view of the chest acquired. RADIATION DOSE: NA LIMITATIONS: None. FINDINGS: LUNGS AND PLEURA: No opacities, masses or pneumothorax. No pleural effusion. MEDIASTINUM AND HILAR STRUCTURES: No masses. Contour normal. HEART AND VASCULAR STRUCTURES: Heart normal in size. Normal vasculature. BONES: No acute findings. HARDWARE: CABG. OTHER: No other significant finding. IMPRESSION: NO ACUTE RADIOGRAPHIC FINDING IN THE CHEST. TECHNICAL DOCUMENTATION: JOB ID: [id number] [employer]- All Rights Reserved Reading location - IP/workstation name: [email or web address]
[2018-08-16] MEDS ORDERED: CEFTRIAXONE INJ 1000 MG VIAL IV ONE (17:21)
[2018-08-16] MEDS ORDERED: ASPIRIN 325 MG TABLET PO ONE (17:21)
--- NOTE | 2018-08-16 17:45 | EKG REPORT ---
SEVERITY:- ABNORMAL ECG - SINUS RHYTHM PROBABLE INFERIOR INFARCT, OLD : Confirmed by: Michael Colindres MD 16-Aug-2018 17:45:28
[2018-08-16 19:02] LABS: APPEARANCE,URINE CLEAR; BILIRUBIN,URINE NEGATIVE (NEGATIVE); COLOR,URINE YELLOW; GLUCOSE, URINE NEGATIVE (NEGATIVE); KETONES,URINE NEGATIVE (NEGATIVE); LEUKOCYTE ESTERASE,URINE TRACE (NEGATIVE); NITRITE,URINE NEGATIVE (NEGATIVE); PROTEIN,URINE NEGATIVE (NEGATIVE); URINE SPECIFIC GRAVITY 1.009; UROBILINOGEN,URINE NEGATIVE mg/dL (<2.0)
[2018-08-16] MEDS ORDERED: ASPIRIN 300 MG SUPP, RECTAL PR ONE (20:21)
[2018-08-16 21:00] LABS: CREATINE KINASE MB 0.66 ng/mL (<4.55); TROPONIN I 0.027 ng/mL
[2018-08-16] MEDS ORDERED: ACETAMINOPHEN 650 MG SUPP.RECT PR PRN (21:18)
[2018-08-16] MEDS ORDERED: LABETALOL HCL INJ 20 MG/4 ML DISP.SYRIN IV PRN (21:18)
[2018-08-16] MEDS ORDERED: GLUCAGON,HUMAN RECOMB 1 MG INJ SUBCUT PRN (21:30)
[2018-08-16] MEDS ORDERED: DEXTROSE 50%-WATER 25 GM/50 ML DISP.SYRIN IV PRN ×2 (21:30)
[2018-08-16] MEDS ORDERED: NALBUPHINE HCL INJ 10 MG/1 ML AMPULE IV PRN (21:31)
[2018-08-16] MEDS ORDERED: NITROGLYCERIN 0.4 MG/TAB 25 TAB/BOTTLE SL PRN (21:31)
[2018-08-16] MEDS ORDERED: NICOTINE 21 MG/24 HR PATCH.TD24 TD PRN (21:31)
[2018-08-16] MEDS: FAMOTIDINE INJ/PF 20 MG/2 ML SDV IV SCH (22:49)
--- NOTE | 2018-08-17 04:11 | PDOC H&P ---
History of Present Illness Admission Date/PCP: 08/16/18 20:37 RICHAR FITZPATRICK DO Patient complains of: New onset increased weakness of right side History of Present Illness: BERTHA WIGGINS JR is a 68 year old male who presented to the emergency room with his family complaining of new onset increased right-sided weakness with inability to walk and an associated new onset frequent cough exacerbated by attempts at eating and/or drinking. The new symptoms were noticed upon his waking this morning and have been continuously present without change since that time. 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 He denies current pain and agrees with the history of new changes. In the emergency room and CAT scan showed evidence of his previous left hemisphere middle cerebral artery infarct with no new changes or evidence of intracranial hemorrhage. With these findings it was felt patient should be admitted for further evaluation and treatment per the stroke protocol. Past Medical History Past Medical History: Due to the patient's expressive aphasia the ability to obtain complete and reliable information for a past medical history, social history, past surgical history and family history as well as review of systems is somewhat limited and requires the use of alternative sources such as family members as well as current and previous records. Cardiac Medical History: Reports: Coronary Artery Disease, Hyperlipidema, Hypertension Denies: Myocardial Infarction Pulmonary Medical History: Denies: Asthma, Bronchitis, Chronic Obstructive Pulmonary Disease (COPD), Pneumonia EENT Medical History: Reports: None Neurological Medical History: Reports: Ischemic CVA Denies: Seizures Endocrine Medical History: Reports: Diabetes Mellitus Type 2 - diet controlled Denies: Hyperthyroidism, Hypothyroidism Renal/ Medical History: Denies: Chronic Kidney Disease, Nephrolithiasis Malignancy Medical History: Reports: None GI Medical History: Denies: Cirrhosis, Gastroesophageal Reflux Disease, Hepatitis Musculoskeltal Medical History: Denies: Arthritis, Gout Skin Medical History: Denies: Eczema, Psoriasis Psychiatric Medical History: Denies: Alcohol Dependency, Substance Abuse, Tobacco Dependency Traumatic Medical History: Reports: None Hematology: Denies: Anemia, Bleeding Tendencies Infectious Medical History: Reports: None Past Surgical History Past Surgical History: Due to the patient's expressive aphasia the ability to obtain complete and reliable information for a past medical history, social history, past surgical history and family history as well as review of systems is somewhat limited and requires the use of alternative sources such as family members as well as current and previous records. Past Surgical History: Reports: Orthopedic Surgery - both feet, both knees, back L3 and 5 Social History Information Source: Patient Lives with: Family Smoking Status: Never Smoker Frequency of Alcohol Use: None Hx Recreational Drug Use: No Drugs: None Hx Prescription Drug Abuse: No Past Social History Note: Due to the patient's expressive aphasia the ability to obtain complete and reliable information for a past medical history, social history, past surgical history and family history as well as review of systems is somewhat limited and requires the use of alternative sources such as family members as well as current and previous records. - Advance Directive Resuscitation Status: Full Code Surrogate healthcare decision maker:: Spouse Family History Family History: DM, Other - Tuberculosis Family History: Due to the patient's expressive aphasia the ability to obtain complete and reliable information for a past medical history, social history, past surgical history and family history as well as review of systems is somewhat limited and requires the use of alternative sources such as family members as well as current and previous records. Parental Family History Reviewed: Yes Children Family History Reviewed: No Sibling(s) Family History Reviewed.: Yes Medication/Allergy Home Medications: Atorvastatin Calcium 80 mg PO QPM 01/04/16 Tamsulosin HCl [Flomax 0.4 mg Cap.sr] 0.4 mg PO DAILY 01/04/16 Amlodipine Besylate 5 mg PO DAILY 01/17/17 Aspirin [Aspirin 325 mg Tablet] 325 mg PO DAILY 01/17/17 Gabapentin 300 mg PO TID 01/17/17 Omeprazole 20 mg PO QAM 01/17/17 Fluoxetine HCl 30 mg PO QAM 05/11/17 Furosemide 20 mg PO QAM 05/11/17 Metformin HCl [Metformin HCl ER] 500 mg PO DAILY 05/11/17 Metoprolol Tartrate 12.5 mg PO DAILY 05/11/17 Allergies/Adverse Reactions: ibuprofen [From Motrin] Allergy (Severe, Verified 01/17/17 12:54) lips swelling, genitalia swelling, eyes swelling Review of Systems Review of Systems: Due to the patient's expressive aphasia the ability to obtain complete and reliable information for a past medical history, social history, past surgical history and family history as well as review of systems is somewhat limited and requires the use of alternative sources such as family members as well as current and previous records. Constitutional: ABSENT: chills, fever(s) Eyes: ABSENT: other - Eye pain, discharge Ears: ABSENT: other - Ear pain, discharge Nose, Mouth, and Throat: PRESENT: as per HPI, other - New onset difficulty swallowing as it causes cough. ABSENT: mouth pain, sore throat Cardiovascular: ABSENT: chest pain, dyspnea on exertion Respiratory: PRESENT: as per HPI, cough - New onset. ABSENT: hemoptysis Gastrointestinal: PRESENT: as per HPI, dysphagia - New-onset. ABSENT: abdominal pain, diarrhea Genitourinary: PRESENT: as per HPI. ABSENT: dysuria, hematuria Musculoskeletal: PRESENT: other - New onset right-sided weakness. ABSENT: back pain Integumentary: ABSENT: pruritus, rash Neurological: PRESENT: as per HPI, focal weakness. ABSENT: convulsions Hematologic/Lymphatic: ABSENT: easy bleeding, easy bruising Physical Exam Vital Signs: Temp Pulse Resp BP Pulse Ox 18 149/98 H 99 08/16/18 19:01 08/16/18 19:00 08/16/18 19:01 General appearance: PRESENT: no acute distress, cooperative, other - Understands communications will and is able to nod yes or no and can make one word answers of yes or no at times. Head exam: PRESENT: atraumatic, normocephalic Eye exam: PRESENT: conjunctiva pink. ABSENT: scleral icterus Ear exam: PRESENT: normal external ear exam. ABSENT: bleeding, drainage Mouth exam: PRESENT: dry mucosa, neck supple Neck exam: ABSENT: thyromegaly, tracheal deviation Respiratory exam: PRESENT: clear to auscultation vidhi, symmetrical, unlabored Cardiovascular exam: PRESENT: RRR. ABSENT: clicks, gallop, rubs Pulses: PRESENT: normal radial pulses, normal dorsalis pedis pul Vascular exam: PRESENT: normal capillary refill. ABSENT: pallor GI/Abdominal exam: PRESENT: normal bowel sounds, soft Rectal exam: PRESENT: deferred Extremities exam: ABSENT: joint swelling, pedal edema, tenderness Musculoskeletal exam: PRESENT: other - Dense right hemiparesis noted. ABSENT: deformity, dislocation Neurological exam: PRESENT: alert, awake, motor sensory deficit - Right hemiparesis, aphasic. ABSENT: CN II-XII grossly intact - Right facial weakness, aphasia, dysarthria, gross dysphagia Psychiatric exam: PRESENT: appropriate affect, normal mood, other - Exam limited by aphasia Skin exam: PRESENT: dry, intact, warm. ABSENT: jaundice, rash, urticaria Results Laboratory Results: 08/16/18 14:45 08/16/18 14:45 08/16/18 08/16/18 08/16/18 14:45 14:45 18:49 WBC 14.0 H RBC 4.72 Hgb 12.9 L Hct 38.3 MCV 81 MCH 27.3 MCHC 33.6 RDW 16.0 H Plt Count 254 Seg Neutrophils % 85.6 H Lymphocytes % 7.2 L Monocytes % 6.5 Eosinophils % 0.1 Basophils % 0.6 Absolute Neutrophils 12.0 H Absolute Lymphocytes 1.0 Absolute Monocytes 0.9 Absolute Eosinophils 0.0 Absolute Basophils 0.1 Sodium 142.2 Potassium 3.8 Chloride 103 Carbon Dioxide 29 Anion Gap 10 BUN 16 Creatinine 1.23 Est GFR ( Amer) > 60 Est GFR (Non-Af Amer) 58 L Glucose 138 H Calcium 9.2 Total Bilirubin 1.5 H AST 37 ALT 11 L Alkaline Phosphatase 88 Total Protein 8.3 H Albumin 4.7 Urine Color YELLOW Urine Appearance CLEAR Urine pH 5.0 Ur Specific [place] 1.009 Urine Protein NEGATIVE Urine Glucose (UA) NEGATIVE Urine Ketones NEGATIVE Urine Blood MODERATE H Urine Nitrite NEGATIVE Ur Leukocyte Esterase TRACE H Urine WBC (Auto) 3 Urine RBC (Auto) 3 08/16/18 08/16/18 08/16/18 14:45 14:45 20:05 Creatine Kinase 787 H 739 H CK-MB (CK-2) 0.91 Troponin I 0.032 08/16/18 20:05 Creatine Kinase CK-MB (CK-2) 0.66 Troponin I 0.027 Impressions: Chest X-Ray 08/16/18 14:26 IMPRESSION: NO ACUTE RADIOGRAPHIC FINDING IN THE CHEST. Head CT 08/16/18 14:26 IMPRESSION: Old infarct. No acute findings. EVIDENCE OF ACUTE STROKE: NO. Assessment & Plan - Diagnosis (1) Right sided weakness Is this a current diagnosis for this admission?: Yes Plan: Due to the new onset of increased right-sided weakness and dysphasia the patient will be evaluated with an MRI of the head as well as an MRA of the head and neck. He will be treated with aspirin 300 mg rectally on a daily basis until he is able to take oral medications. He will have available Nubain 10 mg IV every 3 hours as needed for pain. Patient will otherwise be treated per the stroke protocol with evaluations by physical therapy, occupational therapy and speech therapy as well as close monitoring by nursing staff and a multidisciplinary approach to the patient's ongoing care. Due to the associated dysphagia a formal swallow study will be accomplished by speech therapy and the patient will be maintained n.p.o. until that time so that he may be treated safely when he is able to resume oral intake if that is possible. (2) HTN (hypertension) Qualifiers: Hypertension type: unspecified Qualified Code(s): I10 - Essential (primary) hypertension Is this a current diagnosis for this admission?: Yes Plan: The patient's blood pressure will be controlled with intravenous labetalol administered on a as needed basis to maintain blood pressure less than 160 systolic and less than 100 diastolic. (3) Diabetes mellitus type 2 in nonobese Is this a current diagnosis for this admission?: Yes Plan: Patient's blood sugar will be monitored every 4 hours with regular insulin given on a sliding scale for hyperglycemia. Since he is n.p.o. he will also be monitored for hypoglycemia in the same fashion with appropriate intravenous dex trose given as needed. (4) Hyperlipidemia Qualifiers: Hyperlipidemia type: unspecified Qualified Code(s): E78.5 - Hyperlipidemia, unspecified Is this a current diagnosis for this admission?: Yes Plan: Patient's current hyperlipidemia therapy will be assessed with a lipid profile. He will be restarted on his statin medication as soon as he is able to tolerate oral medications (5) GERD (gastroesophageal reflux disease) Qualifiers: Esophagitis presence: esophagitis presence not specified Qualified Code(s): K21.9 - Gastro-esophageal reflux disease without esophagitis Is this a current diagnosis for this admission?: Yes Plan: Patient will be unable to take oral medications or food initially and as such he will be given Pepcid 20 mg IV every 12 hours to reduce gastric acid production and decrease symptoms of gastroesophageal reflux. (6) BPH (benign prostatic hyperplasia) Qualifiers: Lower urinary tract symptom presence: unspecified whether lower urinary tract symptoms present Qualified Code(s): N40.0 - Benign prostatic hyperplasia without lower urinary tract symptoms Is this a current diagnosis for this admission?: Yes Plan: Patient's urine output will be closely monitored during his hospital course as he is currently unable to take oral medications and may require catheterization if he is unable to void. (7) Leukocytosis Qualifiers: Leukocytosis type: unspecified Qualified Code(s): D72.829 - Elevated white blood cell count, unspecified Is this a current diagnosis for this admission?: Yes Plan: Patient's leukocytosis will be evaluated by daily CBC evaluations. No obvious source of infection is noted and less there is a obvious infection to treat antibiotics will not be used empirically at this time. - Time Time Spent: 30 to 50 Minutes Critical Time spent with patient: Less than 15 minutes Medications reviewed and adjusted accordingly: Yes Anticipated discharge: SNF - Inpatient Certification Based on my medical assessment, after consideration of the patient's comorbidities, presenting symptoms, or acuity I expect that the services needed warrant INPATIENT care.: Yes I certify that my determination is in accordance with my understanding of Medicare's requirements for reasonable and necessary INPATIENT services [42 CFR 412.3e].: Yes Medical Necessity: Significant Comorbidiites Make Outpatient Treatment Too Risky, Need Close Monitoring Due to Risk of Patient Decompensation, Need For Continuous Telemetry Monitoring, Need for Neurological Checks, Risk of Complication if Not Cared For in Hospital
[2018-08-17 06:07] LABS: HEMATOCRIT 33.4 % (37.9-51.0); HEMOGLOBIN 11.3 g/dL (13.5-17.0); MEAN CORPUSCULAR HEMOGLOBIN 27.3 pg (27.0-33.4); MEAN CORPUSCULAR HGB CONC 33.9 g/dL (32.0-36.0); MEAN CORPUSCULAR VOLUME 81 fl (80-97); PLATELET COUNT 209 10^3/uL (150-450); RED BLOOD COUNT 4.13 10^6/uL (4.35-5.55); RED CELL DISTRIBUTION WIDTH 15.7 % (11.5-14.0); WHITE BLOOD COUNT 9.4 10^3/uL (4.0-10.5)
[2018-08-17 06:26] LABS: ANION GAP 10 (5-19); BLOOD UREA NITROGEN 14 mg/dL (7-20); CALCIUM 8.6 mg/dL (8.4-10.2); CARBON DIOXIDE 27 mmol/L (22-30); CHLORIDE 106 mmol/L (98-107); CREATINE KINASE 586 U/L (55-170); GLUCOSE 105 mg/dL (75-110); POTASSIUM 3.8 mmol/L (3.6-5.0); SODIUM 142.6 mmol/L (137-145); TRIGLYCERIDES 60 mg/dL (<150)
[2018-08-17 06:36] LABS: DIRECT LDL 100 mg/dL (<100)
[2018-08-17] MEDS: FAMOTIDINE INJ/PF 20 MG/2 ML SDV IV SCH ×2 (09:56→21:41)
[2018-08-17] MEDS: FONDAPARINUX SODIUM INJ 2.5 MG/0.5 ML DISP.SYRIN SUBCUT SCH (09:59)
[2018-08-17] MEDS ORDERED: ASPIRIN 300 MG SUPP, RECTAL PR SCH (10:00)
--- NOTE | 2018-08-17 13:42 | RADIOLOGY REPORT (SQ) ---
EXAM DESCRIPTION: MRA HEAD WITHOUT COMPLETED DATE/TIME: 08/17/2018 1:29 pm REASON FOR STUDY: new right weakness dysphagia/cough COMPARISON: None. TECHNIQUE: Axial 3-D [id number] acquisition imaging performed through the brain in the area of t he [place]. Images reformatted using 3-D MIPS. LIMITATIONS: None. FINDINGS: SOURCE IMAGES: No unexpected findings on source images. No large masses. 3-D MIP: No aneurysm. No occlusions. No significant stenosis. OTHER: No other significant finding. IMPRESSION: NORMAL MRA OF THE [place]. TECHNICAL DOCUMENTATION: JOB ID: [id number] [employer]- All Rights Reserved Reading location - IP/workstation name: [email or web address]
--- NOTE | 2018-08-17 13:46 | RADIOLOGY REPORT (SQ) ---
EXAM DESCRIPTION: MRI HEAD WITHOUT COMPLETED DATE/TIME: 08/17/2018 1:30 pm REASON FOR STUDY: new right weakness dysphagia/cough COMPARISON: None. TECHNIQUE: Multiplanar imaging includes non-contrasted T1, T2, FLAIR, and diffusion with ADC map seq uences. Images stored on PACS. LIMITATIONS: Motion. FINDINGS: ANATOMY: No anomalies. Normal vascular flow voids. Pituitary fossa normal. CSF SPACES: Atrophy induced prominence of ventricles and CSF spaces. CEREBRUM: Old large infarct left parietal lobe MCA territory. There is associated T2 shine through. High signal intensity lesions scattered throughout the white matter on FLAIR imaging with distributi on suggesting micro-vascular ischemic changes. No evidence of hemorrhage, mass, or extraaxial fluid collection. POSTERIOR FOSSA: No signal alteration. No hemorrhage. No edema, masses or mass effect. Internal jarvis tory canals, cerebello-pontine angles, mastoids normal. DIFFUSION IMAGING: Series 3, image 17, there is a punctate focus of abnormal high signal on diffusion and dark signal on ADC map along the medial margin of the old left parietal infarct. ORBITS: No masses. Globes normal. PARANASAL SINUSES: No fluid levels. Mucosa normal. OTHER: No other significant finding. IMPRESSION: Tiny nonhemorrhagic acute lacunar infarct along the medial margin of the chronic left MC A territory infarct. EVIDENCE OF ACUTE STROKE: YES. LEFT MCA. TECHNICAL DOCUMENTATION: JOB ID: [id number]- All Rights Reserved Reading location - IP/workstation name: [email or web address]
--- NOTE | 2018-08-17 13:47 | RADIOLOGY REPORT (SQ) ---
EXAM DESCRIPTION: MRA NECK WITHOUT COMPLETED DATE/TIME: 08/17/2018 1:29 pm REASON FOR STUDY: new right weakness dysphagia/cough COMPARISON: None. TECHNIQUE: Axial 2-D volume acquisition imaging through the extracranial carotid and vertebral arter ies with reformatting using 3-D MIPS. LIMITATIONS: None. FINDINGS: RIGHT CAROTID ARTERY: No stenosis or occlusive changes. Limited visualization of the orig in. LEFT CAROTID ARTERY: No stenosis or occlusive changes. Limited visualization of the origin. VERTEBRAL ARTERY: The extracranial portions of the vertebral basilar system are preserved without chase nosis. No aneurysmal dilatation or dissection is seen. OTHER: No other significant finding. IMPRESSION: NO SIGNIFICANT STENOSIS. COMMENT: Quality ID #[id number]: Measurements of distal internal carotid diameter were used as the denomin ator for stenosis measurement. TECHNICAL DOCUMENTATION: JOB ID: [id number] [employer]- All Rights Reserved Reading location - IP/workstation name: [email or web address]
[2018-08-17] MEDS ORDERED: CLONAZEPAM 1 MG TABLET PO PRN (15:32)
[2018-08-17] MEDS ORDERED: ACETAMINOPHEN 325 MG TABLET PO PRN (16:50)
--- NOTE | 2018-08-17 16:59 | PDOC PROGRESS REPORT ---
Subjective Progress Note for:: 08/17/18 Subjective:: 68 y.o. M with a PMH of CVA (with residual right-sided hemiparesis), CAD, HLD, HTN, DM presented to [facility] with worsening right-sided weakness. Admitted to hospitalist service for acute CVA. MRI head reveals tiny nonhemorrhagic acute lacunar infarct along the medial m argin of the chronic left MCA territory infarct. (+) Evidence of acute stroke. Patient was seen this morning on rounds, he is resting comfortably in bed on room air. The patient makes attempts to communicate but is extremely dysarthric. Words are incomprehensible. There is no evidence of facial droop. RUE is contracted, no fine or gross motor. RLE weakness 2/5. Full strength and ROM to the LUE and LLE. Blood pressure has been well controlled with IV PRN antihypertensives. The patient was able to pass his swallow evaluation, speech therapy recommended a mechanical soft diet. Awaiting PT/OT evaluation. The patient will likely require acute rehab. Reason For Visit: NEW ONSET INCREASED WEAKNESS OF RIGHT SIDE WITH Physical Exam Vital Signs: Temp Pulse Resp BP Pulse Ox 97.7 F 85 16 144/74 H 98 08/17/18 15:46 08/17/18 15:46 08/17/18 15:46 08/17/18 15:46 08/17/18 15:46 Intake & Output 08/16/18 08/17/18 08/18/18 06:59 06:59 06:59 Weight 69.7 kg General appearance: PRESENT: well-developed Head exam: PRESENT: atraumatic Eye exam: PRESENT: conjunctiva pink, PERRLA Mouth exam: PRESENT: moist, tongue midline Teeth exam: PRESENT: poor dentation Respiratory exam: PRESENT: clear to auscultation vidhi, symmetrical, unlabored Cardiovascular exam: PRESENT: RRR Pulses: PRESENT: normal radial pulses, normal dorsalis pedis pul Vascular exam: PRESENT: normal capillary refill GI/Abdominal exam: PRESENT: soft. ABSENT: distended, tenderness Rectal exam: PRESENT: deferred Extremities exam: ABSENT: full ROM - RUE contracted, no gross or fine motor. RLE 2/5. LUE and LLE 5/5., pedal edema Musculoskeletal exam: ABSENT: ambulatory, full ROM, normal inspection Neurological exam: PRESENT: alert, awake, other - Unable to assess orientation due to patient's dysarthria. ABSENT: oriented to person, oriented to place, oriented to time, oriented to situation Psychiatric exam: PRESENT: agitated, anxious Skin exam: PRESENT: dry, intact, normal color Results Laboratory Results: 08/17/18 05:28 08/17/18 05:28 08/16/18 08/17/18 08/17/18 18:49 05:28 05:28 WBC 9.4 RBC 4.13 L Hgb 11.3 L Hct 33.4 L MCV 81 MCH 27.3 MCHC 33.9 RDW 15.7 H Plt Count 209 Sodium 142.6 Potassium 3.8 Chloride 106 Carbon Dioxide 27 Anion Gap 10 BUN 14 Creatinine 1.08 Est GFR ( Amer) > 60 Est GFR (Non-Af Amer) > 60 Glucose 105 Calcium 8.6 Triglycerides 60 Cholesterol 171.20 LDL Cholesterol Direct 100 VLDL Cholesterol 12.0 HDL Cholesterol 53 Urine Color YELLOW Urine Appearance CLEAR Urine pH 5.0 Ur Specific [place] 1.009 Urine Protein NEGATIVE Urine Glucose (UA) NEGATIVE Urine Ketones NEGATIVE Urine Blood MODERATE H Urine Nitrite NEGATIVE Ur Leukocyte Esterase TRACE H Urine WBC (Auto) 3 Urine RBC (Auto) 3 08/16/18 08/16/18 08/16/18 14:45 14:45 20:05 Creatine Kinase 787 H 739 H CK-MB (CK-2) 0.91 Troponin I 0.032 08/16/18 08/17/18 20:05 05:28 Creatine Kinase 586 H CK-MB (CK-2) 0.66 Troponin I 0.027 Impressions: Chest X-Ray 08/16/18 14:26 IMPRESSION: NO ACUTE RADIOGRAPHIC FINDING IN THE CHEST. Head CT 08/16/18 14:26 IMPRESSION: Old infarct. No acute findings. EVIDENCE OF ACUTE STROKE: NO. Brain MRI with MRA 08/16/18 21:21 IMPRESSION: NORMAL MRA OF THE [place]. Neck MRA 08/16/18 21:22 IMPRESSION: NO SIGNIFICANT STENOSIS. Head MRI 08/17/18 08:05 IMPRESSION: Tiny nonhemorrhagic acute lacunar infarct along the medial margin of the chronic left MCA territory infarct. EVIDENCE OF ACUTE STROKE: YES. LEFT MCA. Status: Imported from PACS Assessment & Plan - Diagnosis (1) CVA (cerebral vascular accident) Qualifiers: Precerebral and cerebral artery: middle cerebral artery Laterality of affected vessel: left Is this a current diagnosis for this admission?: Yes Plan: Acute CVA seen on MRI Tiny nonhemorrhagic acute lacunar infarcts along the medial margin of the chronic left MCA infarct territory MRA brain negative MRA neck negative Head CT negative Dual antiplatelet therapy -aspirin 81 mg and Plavix 75 mg p.o. daily Speech therapy -past swallow evaluation. Recommend mechanical soft diet. PT/OT evaluation pending PRN antihypertensives for SBP > 180 Anticipate acute rehab placement (2) Diabetes Qualifiers: Diabetes mellitus type: type 2 Diabetes mellitus complication status: without complication Is this a current diagnosis for this admission?: Yes Plan: Accu-Cheks AC at bedtime Humalog sliding scale insulin (3) BPH (benign prostatic hyperplasia) Qualifiers: Lower urinary tract symptom presence: unspecified whether lower urinary tract symptoms present Qualified Code(s): N40.0 - Benign prostatic hyperplasia without lower urinary tract symptoms Is this a current diagnosis for this admission?: Yes (4) GERD (gastroesophageal reflux disease) Qualifiers: Esophagitis presence: esophagitis presence not specified Qualified Code(s): K21.9 - Gastro-esophageal reflux disease without esophagitis Is this a current diagnosis for this admission?: Yes Plan: PMH GERD Famotidine twice daily (5) HTN (hypertension) Qualifiers: Hypertension type: unspecified Qualified Code(s): I10 - Essential (primary) hypertension Is this a current diagnosis for this admission?: Yes Plan: PMH HTN Unclear about medication compliance PRN IV antihypertensives for SBP greater than 180 (6) Hyperlipidemia Qualifiers: Hyperlipidemia type: unspecified Qualified Code(s): E78.5 - Hyperlipidemia, unspecified Is this a current diagnosis for this admission?: Yes Plan: PMH HLD Lipid panel within normal limits Daily low-dose atorvastatin - Time Time Spent with patient: 15-24 minutes Medications reviewed and adjusted accordingly: Yes Anticipated discharge: Acute Rehab - Inpatient Certification Based on my medical assessment, after consideration of the patient's comorbidities, presenting symptoms, or acuity I expect that the services needed warrant INPATIENT care.: Yes I certify that my determination is in accordance with my understanding of Medicare's requirements for reasonable and necessary INPATIENT services [42 CFR 412.3e].: Yes Medical Necessity: Need for Neurological Checks, Risk of Complication if Not Cared For in Hospital
[2018-08-17] MEDS: ATORVASTATIN CALCIUM 10 MG TABLET PO SCH (21:47)
[2018-08-17] MEDS: INSULIN REG, HUMAN 100 UNIT/ML 3 ML VIAL (PYX) SUBCUT PRN (22:10)
[2018-08-18 07:05] LABS: HEMATOCRIT 33.6 % (37.9-51.0); HEMOGLOBIN 11.4 g/dL (13.5-17.0); MEAN CORPUSCULAR HEMOGLOBIN 27.3 pg (27.0-33.4); MEAN CORPUSCULAR VOLUME 80 fl (80-97); PLATELET COUNT 216 10^3/uL (150-450); RED BLOOD COUNT 4.17 10^6/uL (4.35-5.55); RED CELL DISTRIBUTION WIDTH 15.5 % (11.5-14.0); WHITE BLOOD COUNT 5.7 10^3/uL (4.0-10.5)
[2018-08-18 07:38] LABS: ANION GAP 8 (5-19); BLOOD UREA NITROGEN 14 mg/dL (7-20); CALCIUM 8.4 mg/dL (8.4-10.2); CARBON DIOXIDE 28 mmol/L (22-30); CHLORIDE 107 mmol/L (98-107); CREATINE KINASE 364 U/L (55-170); GLUCOSE 126 mg/dL (75-110); POTASSIUM 3.7 mmol/L (3.6-5.0); SODIUM 142.8 mmol/L (137-145)
[2018-08-18] MEDS: ASPIRIN 81 MG TABLET, CHEWABLE PO SCH (09:36)
[2018-08-18] MEDS: FAMOTIDINE INJ/PF 20 MG/2 ML SDV IV SCH ×2 (09:36→21:27)
[2018-08-18] MEDS: CLOPIDOGREL BISULFATE 75 MG TABLET PO SCH (09:36)
[2018-08-18] MEDS: FONDAPARINUX SODIUM INJ 2.5 MG/0.5 ML DISP.SYRIN SUBCUT SCH (09:36)
[2018-08-18] MEDS: ONDANSETRON HCL INJ/PF 4 MG/2 ML SDV IV PRN (20:40)
--- NOTE | 2018-08-18 21:02 | PDOC PROGRESS REPORT ---
Subjective Progress Note for:: 08/18/18 Subjective:: 68 y.o. M with a PMH of CVA (with residual right-sided hemiparesis), CAD, HLD, HTN, DM presented to [facility] with worsening right-sided weakness. Admitted to hospitalist service for acute CVA. MRI head reveals tiny nonhemorrhagic acute lacunar infarct along the medial margin of the chronic left MCA territory infarct. (+) Evidence of acute stroke. Patient was seen this morning on rounds, he is resting comfortably in bed on room air. is at the bedside. The patient makes attempts to communicate but is extremely dysarthric. Words are incomprehensible. There is no evidence of facial droop. RUE is contracted, no fine or gross motor. RLE weakness 0/5. Full strength and ROM to the LUE and LLE. PT/OT evaluation done today, they feel he will likely require acute rehab. He is a 2 person max assist. Concern there is not enough support at home for the patient. Reason For Visit: NEW ONSET INCREASED WEAKNESS OF RIGHT SIDE WITH Physical Exam Vital Signs: Temp Pulse Resp BP Pulse Ox 98.6 F 81 20 116/67 97 08/18/18 19:22 08/18/18 19:22 08/18/18 19:22 08/18/18 19:22 08/18/18 19:22 Intake & Output 08/17/18 08/18/18 08/19/18 06:59 06:59 06:59 Intake Total 473 Balance 473 Weight 69.7 kg 69.8 kg General appearance: PRESENT: thin Head exam: PRESENT: atraumatic Eye exam: PRESENT: conjunctiva pink, PERRLA Mouth exam: PRESENT: tongue midline Teeth exam: PRESENT: poor dentation Neck exam: PRESENT: full ROM Respiratory exam: PRESENT: clear to auscultation vidhi, symmetrical, unlabored Cardiovascular exam: PRESENT: RRR Pulses: PRESENT: normal radial pulses, normal dorsalis pedis pul Vascular exam: PRESENT: normal capillary refill GI/Abdominal exam: PRESENT: soft. ABSENT: distended, tenderness Rectal exam: PRESENT: deferred Extremities exam: PRESENT: joint swelling. ABSENT: full ROM, pedal edema Musculoskeletal exam: ABSENT: ambulatory, full ROM Neurological exam: PRESENT: alert, awake, aphasic Skin exam: PRESENT: dry, intact, normal color Results Laboratory Results: 08/18/18 05:50 08/18/18 05:50 08/18/18 08/18/18 05:50 05:50 WBC 5.7 RBC 4.17 L Hgb 11.4 L Hct 33.6 L MCV 80 MCH 27.3 MCHC 34.0 RDW 15.5 H Plt Count 216 Sodium 142.8 Potassium 3.7 Chloride 107 Carbon Dioxide 28 Anion Gap 8 BUN 14 Creatinine 1.27 H Est GFR ( Amer) > 60 Est GFR (Non-Af Amer) 56 L Glucose 126 H Calcium 8.4 08/16/18 08/16/18 08/16/18 14:45 14:45 20:05 Creatine Kinase 787 H 739 H CK-MB (CK-2) 0.91 Troponin I 0.032 08/16/18 08/17/18 08/18/18 20:05 05:28 05:50 Creatine Kinase 586 H 364 H CK-MB (CK-2) 0.66 Troponin I 0.027 Impressions: Chest X-Ray 08/16/18 14:26 IMPRESSION: NO ACUTE RADIOGRAPHIC FINDING IN THE CHEST. Head CT 08/16/18 14:26 IMPRESSION: Old infarct. No acute findings. EVIDENCE OF ACUTE STROKE: NO. Brain MRI with MRA 08/16/18 21:21 IMPRESSION: NORMAL MRA OF THE [place]. Neck MRA 08/16/18 21:22 IMPRESSION: NO SIGNIFICANT STENOSIS. Head MRI 08/17/18 08:05 IMPRESSION: Tiny nonhemorrhagic acute lacunar infarct along the medial margin of the chronic left MCA territory infarct. EVIDENCE OF ACUTE STROKE: YES. LEFT MCA. Status: Imported from PACS Assessment & Plan - Diagnosis (1) CVA (cerebral vascular accident) Qualifiers: Precerebral and cerebral artery: middle cerebral artery Laterality of affected vessel: left Is this a current diagnosis for this admission?: Yes (2) Diabetes Qualifiers: Diabetes mellitus type: type 2 Diabetes mellitus complication status: without complication Is this a current diagnosis for this admission?: Yes Plan: Accu-Cheks AC at bedtime Humalog sliding scale insulin (3) BPH (benign prostatic hyperplasia) Qualifiers: Lower urinary tract symptom presence: unspecified whether lower urinary tract symptoms present Qualified Code(s): N40.0 - Benign prostatic hyperplasia without lower urinary tract symptoms Is this a current diagnosis for this admission?: Yes (4) GERD (gastroesophageal reflux disease) Qualifiers: Esophagitis presence: esophagitis presence not specified Qualified Code(s): K21.9 - Gastro-esophageal reflux disease without esophagitis Is this a current diagnosis for this admission?: Yes Plan: PMH GERD Famotidine twice daily (5) HTN (hypertension) Qualifiers: Hypertension type: unspecified Qualified Code(s): I10 - Essential (primary) hypertension Is this a current diagnosis for this admission?: Yes Plan: PMH HTN Unclear about medication compliance Resume h\home dose metoprolol PRN IV antihypertensives for SBP greater than 180 (6) Hyperlipidemia Qualifiers: Hyperlipidemia type: unspecified Qualified Code(s): E78.5 - Hyperlipidemia, unspecified Is this a current diagnosis for this admission?: Yes Plan: H HLD Lipid panel within normal limits Daily low-dose atorvastatin - Time Time Spent with patient: 15-24 minutes Medications reviewed and adjusted accordingly: Yes Anticipated discharge: Acute Rehab - Inpatient Certification Based on my medical assessment, after consideration of the patient's comorbidities, presenting symptoms, or acuity I expect that the services needed warrant INPATIENT care.: Yes I certify that my determination is in accordance with my understanding of Medicare's requirements for reasonable and necessary INPATIENT services [42 CFR 412.3e].: Yes Medical Necessity: Need For Continuous Telemetry Monitoring - Plan Summary Plan Summary: PT OT EVALUATION. ANTICIPATE DETENTION/ACUTE REHAB. SIMA RELATIVELY WELL CONTROLLED
[2018-08-18] MEDS: ATORVASTATIN CALCIUM 10 MG TABLET PO SCH (21:27)
[2018-08-18] MEDS: INSULIN REG, HUMAN 100 UNIT/ML 3 ML VIAL (PYX) SUBCUT PRN (21:41)
[2018-08-19] MEDS: ONDANSETRON HCL INJ/PF 4 MG/2 ML SDV IV PRN (05:13)
[2018-08-19 06:31] LABS: HEMATOCRIT 34.4 % (37.9-51.0); HEMOGLOBIN 11.6 g/dL (13.5-17.0); MEAN CORPUSCULAR HEMOGLOBIN 27.4 pg (27.0-33.4); MEAN CORPUSCULAR HGB CONC 33.8 g/dL (32.0-36.0); MEAN CORPUSCULAR VOLUME 81 fl (80-97); PLATELET COUNT 223 10^3/uL (150-450); RED BLOOD COUNT 4.25 10^6/uL (4.35-5.55); RED CELL DISTRIBUTION WIDTH 15.5 % (11.5-14.0)
[2018-08-19 06:57] LABS: WHITE BLOOD COUNT 2.8 10^3/uL (4.0-10.5)
[2018-08-19 06:59] LABS: ANION GAP 7 (5-19); BLOOD UREA NITROGEN 17 mg/dL (7-20); CALCIUM 8.8 mg/dL (8.4-10.2); CARBON DIOXIDE 33 mmol/L (22-30); CHLORIDE 103 mmol/L (98-107); CREATINE KINASE 212 U/L (55-170); GLUCOSE 102 mg/dL (75-110); POTASSIUM 3.6 mmol/L (3.6-5.0); SODIUM 143.2 mmol/L (137-145)
[2018-08-19] MEDS: FAMOTIDINE INJ/PF 20 MG/2 ML SDV IV SCH ×2 (10:05→21:58)
[2018-08-19] MEDS: ASPIRIN 81 MG TABLET, CHEWABLE PO SCH (10:05)
[2018-08-19] MEDS: CLOPIDOGREL BISULFATE 75 MG TABLET PO SCH (10:06)
[2018-08-19] MEDS: FONDAPARINUX SODIUM INJ 2.5 MG/0.5 ML DISP.SYRIN SUBCUT SCH (10:06)
[2018-08-19] MEDS ORDERED: NORMAL SALINE 1000 ML 1,000 ML IV ONE (11:19)
[2018-08-19] MEDS ORDERED: MAGNESIUM HYDROXIDE SUSP 30 ML UDCUP PO ONE (14:00)
[2018-08-19] MEDS: GABAPENTIN 100 MG CAPSULE PO SCH ×2 (14:09→21:58)
--- NOTE | 2018-08-19 16:33 | PDOC PROGRESS REPORT ---
Subjective Progress Note for:: 08/19/18 Subjective:: 68 y.o. M with a PMH of CVA (with residual right-sided hemiparesis), CAD, HLD, HTN, DM presented to [facility] with worsening right-sided weakness. Admitted to hospitalist service for acute CVA. MRI head reveals tiny nonhemorrhagic acute lacunar infarct along the medial margin of the chronic left MCA territory infarct. (+) Evidence of acute stroke; tiny nonhemorrhagic acute lacunar infarcts along the medial margin of the chronic left MCA infarct territory. The patient was seen on morning rounds and again shortly later with his daughter present. He was found resting in bed comfortably on room air. He has significant expressive aphasia and dysarthria that his daughter reports is his baseline from previous CVA. The patient becomes highly agitated and aggressivel y shakes his hands and kicks a leg towards his daughter. Despite multiple attempts, we are unable to determine the cause of his irritation/frustration today. Daughter does confirm that he has chronic right lower extremity pain and has chronic sciatica to that extremity. Otherwise, she reports that he appears to be at his baseline. She defers all questions regarding disposition to her mother who was not present at this time. ROS is limited secondary to communication, however, patient clearly denies headache, chest pain and difficulty breathing. Nursing has no questions or concerns at this time. Reason For Visit: CVA,HTN,KAIT Physical Exam Vital Signs: Temp Pulse Resp BP Pulse Ox 97.3 F 72 17 148/78 H 97 08/19/18 11:07 08/19/18 11:07 08/19/18 11:07 08/19/18 11:07 08/19/18 11:07 Intake & Output 08/18/18 08/19/18 08/20/18 06:59 06:59 06:59 Intake Total 473 236 Balance 473 236 Weight 69.8 kg 70.3 kg General appearance: PRESENT: no acute distress, thin, well-developed Head exam: PRESENT: atraumatic, normocephalic Eye exam: PRESENT: conjunctiva pink, EOMI, PERRLA. ABSENT: scleral icterus Mouth exam: PRESENT: moist, tongue midline Teeth exam: PRESENT: poor dentation Neck exam: ABSENT: carotid bruit, JVD, lymphadenopathy, thyromegaly Respiratory exam: PRESENT: clear to auscultation vidhi, symmetrical, unlabored. ABSENT: rales, rhonchi, wheezes Cardiovascular exam: PRESENT: RRR, +S1, +S2. ABSENT: diastolic murmur, rubs, systolic murmur Pulses: PRESENT: normal dorsalis pedis pul Vascular exam: PRESENT: normal capillary refill GI/Abdominal exam: PRESENT: distended, normal bowel sounds, soft. ABSENT: guarding, mass, organolmegaly, rebound, tenderness Rectal exam: PRESENT: deferred Extremities exam: ABSENT: full ROM - Are you weak contracted, no gross or fine motor skills. RLE 2/5. Lower extremities are strong and equal bilaterally; 5/5 Musculoskeletal exam: ABSENT: ambulatory Neurological exam: PRESENT: alert, awake, oriented to person, other - Exam limited secondary to expressive aphasia; chronic right side weakness and contractures as described above from previous CVA. No facial asymmetry noted.. ABSENT: motor sensory deficit Psychiatric exam: PRESENT: agitated, anxious Skin exam: PRESENT: dry, intact, warm. ABSENT: cyanosis, rash Results Laboratory Results: 08/19/18 05:20 08/19/18 05:20 08/19/18 08/19/18 08/19/18 05:20 05:20 05:20 WBC 2.8 L D RBC 4.25 L Hgb 11.6 L Hct 34.4 L MCV 81 MCH 27.4 MCHC 33.8 RDW 15.5 H Plt Count 223 Sodium 143.2 Potassium 3.6 Chloride 103 Carbon Dioxide 33 H Anion Gap 7 BUN 17 Creatinine 1.27 H Est GFR ( Amer) > 60 Est GFR (Non-Af Amer) 56 L Glucose 102 Calcium 8.8 Lipase 151.6 08/16/18 08/16/18 08/16/18 14:45 14:45 20:05 Creatine Kinase 787 H 739 H CK-MB (CK-2) 0.91 Troponin I 0.032 08/16/18 08/17/18 08/18/18 20:05 05:28 05:50 Creatine Kinase 586 H 364 H CK-MB (CK-2) 0.66 Troponin I 0.027 08/19/18 05:20 Creatine Kinase 212 H CK-MB (CK-2) Troponin I Impressions: Chest X-Ray 08/16/18 14:26 IMPRESSION: NO ACUTE RADIOGRAPHIC FINDING IN THE CHEST. Head CT 08/16/18 14:26 IMPRESSION: Old infarct. No acute findings. EVIDENCE OF ACUTE STROKE: NO. Brain MRI with MRA 08/16/18 21:21 IMPRESSION: NORMAL MRA OF THE [place] OF [place]. Neck MRA 08/16/18 21:22 IMPRESSION: NO SIGNIFICANT STENOSIS. Head MRI 08/17/18 08:05 IMPRESSION: Tiny nonhemorrhagic acute lacunar infarct along the medial margin of the chronic left MCA territory infarct. EVIDENCE OF ACUTE STROKE: YES. LEFT MCA. Assessment & Plan - Diagnosis (1) CVA (cerebral vascular accident) Qualifiers: Precerebral and cerebral artery: middle cerebral artery Laterality of affected vessel: left Is this a current diagnosis for this admission?: Yes Plan: Patient is nonverbal with chronic right-sided weakness from prior CVA; normally walks independently with a cane but was brought in due to increased weakness when attempting to stand. Patient lives at home with his and grandson. Daughter reports that he is at his baseline function today. Acute CVA seen on MRI; tiny nonhemorrhagic acute lacunar infarcts along the medial margin of the chronic left MCA infarct territory MRA brain negative MRA neck negative Head CT negative Continue dual antiplatelet therapy -aspirin 81 mg and Plavix 75 mg p.o. daily Speech therapy -past swallow evaluation. Recommend mechanical soft diet. PT/OT evaluation completed; recommend home health PT at discharge Resume the patient's home antihypertensive therapies. Daily statin therapy. Diabetes management optimization. Cardiac/consistent carb diet. (2) Diabetes Qualifiers: Diabetes mellitus type: type 2 Diabetes mellitus complication status: without complication Is this a current diagnosis for this admission?: Yes Plan: A1C 6.1%; well controlled on home regiment. He is placed on a consistent carb/cardiac diet. Accu-Cheks before meals and at bedtime with Humalog for sliding scale coverage. Hypoglycemia protocols in place. (3) BPH (benign prostatic hyperplasia) Qualifiers: Lower urinary tract symptom presence: unspecified whether lower urinary tract symptoms present Qualified Code(s): N40.0 - Benign prostatic hyperplasia without lower urinary tract symptoms Is this a current diagnosis for this admission?: Yes Plan: Hx BPH. Start Flomax. (4) GERD (gastroesophageal reflux disease) Qualifiers: Esophagitis presence: esophagitis presence not specified Qualified Code(s): K21.9 - Gastro-esophageal reflux disease without esophagitis Is this a current diagnosis for this admission?: Yes Plan: Continue Pepcid twice daily. (5) HTN (hypertension) Qualifiers: Hypertension type: unspecified Qualified Code(s): I10 - Essential (primary) hypertension Is this a current diagnosis for this admission?: Yes Plan: Permissive hypertension allowed x48 hours. Will resume home antihypertensives today: Resume amlodipine 5 mg daily. Have restarted Toprolol XL at slightly reduced dose of 12.5 mg twice daily; will increase as tolerated to home dose of 25 mg BID Cardiac diet. (6) Hyperlipidemia Qualifiers: Hyperlipidemia type: unspecified Qualified Code(s): E78.5 - Hyperlipidemia, unspecified Is this a current diagnosis for this admission?: Yes Plan: Resume the patient's home dose atorvastatin 80 mg nightly. Cardiac diet. (7) Constipation Is this a current diagnosis for this admission?: Yes Plan: The patient's discomfort was difficult to assess today, however, he repeatedly indicated his abdomen. He is noted to be soft with active bowel sounds, but slightly distended. Patient's daughter was unable to comment if this was his normal appearance. Patient adamantly refused imaging. Lipase is nml He has not had any documented bowel movements. We will start with Colace daily and milk of magnesia x1. Observe for worsening sx of pain/distention indicating more acute process. (8) Dehydration Is this a current diagnosis for this admission?: Yes Plan: Due to poor p.o. intake secondary to patient's inability to provide for self or communicate needs. He was noted to have a slight increase in his creatinine to 1.27 from baseline of 1.10 with associated increase in bicarb to 33 CK remains elevated though trending down (787--> 586--> 364--> 212) NS bolus x1L followed by gentle maintenance IV fluids. Encourage p.o. fluids. - Time Time Spent with patient: 25-34 minutes Medications reviewed and adjusted accordingly: Yes Anticipated discharge: Home with Homehealth Within: within 24 hours - If creatinine and CK are improved
[2018-08-19] MEDS ORDERED: (PENDING PHARMACY ID) (Dorzolamide Hcl/Pf [Dorzolamide 2% Eye Drop] 1 DROP) OU SCH (18:00)
[2018-08-19] MEDS: NORMAL SALINE 1000 ML 1,000 ML IV PRN (18:32)
[2018-08-19] MEDS: DORZOLAMIDE HCL 2% OPH SOLN 10 ML OU SCH ×2 (18:34→21:59)
[2018-08-19] MEDS: TAMSULOSIN HCL 0.4 MG CAP.SR.24H PO SCH (19:09)
[2018-08-19] MEDS: INSULIN REG, HUMAN 100 UNIT/ML 3 ML VIAL (PYX) SUBCUT PRN (21:57)
[2018-08-19] MEDS: ATORVASTATIN CALCIUM 80 MG TABLET PO SCH (21:58)
[2018-08-19] MEDS: LATANOPROST 0.005% OPH SOLN 2.5 ML OU SCH (21:59)
[2018-08-19] MEDS ORDERED: (PENDING PHARMACY ID) (Latanoprost/Pf [Latanoprost 0.005% Eye Drop] 1 DROP) OU SCH (22:00)
[2018-08-20] MEDS: GABAPENTIN 100 MG CAPSULE PO SCH ×3 (05:08→21:56)
[2018-08-20 05:38] LABS: HEMATOCRIT 32.1 % (37.9-51.0); MEAN CORPUSCULAR HEMOGLOBIN 27.5 pg (27.0-33.4); MEAN CORPUSCULAR HGB CONC 34.4 g/dL (32.0-36.0); MEAN CORPUSCULAR VOLUME 80 fl (80-97); PLATELET COUNT 245 10^3/uL (150-450); RED BLOOD COUNT 4.01 10^6/uL (4.35-5.55); RED CELL DISTRIBUTION WIDTH 15.4 % (11.5-14.0); WHITE BLOOD COUNT 3.4 10^3/uL (4.0-10.5)
[2018-08-20 06:06] LABS: ANION GAP 8 (5-19); BLOOD UREA NITROGEN 18 mg/dL (7-20); CALCIUM 8.6 mg/dL (8.4-10.2); CARBON DIOXIDE 29 mmol/L (22-30); CHLORIDE 106 mmol/L (98-107); GLUCOSE 90 mg/dL (75-110); POTASSIUM 3.9 mmol/L (3.6-5.0); SODIUM 142.6 mmol/L (137-145)
[2018-08-20] MEDS ORDERED: ASPIRIN 325 MG TABLET, ENT COATED PO SCH (10:00)
[2018-08-20] MEDS ORDERED: AMLODIPINE BESYLATE 5 MG TABLET PO SCH (10:00)
[2018-08-20] MEDS ORDERED: METOPROLOL SUCCINATE 25 MG TAB.SR.24H PO SCH (10:00)
[2018-08-20] MEDS: DOCUSATE SODIUM 100 MG CAPSULE PO SCH (10:34)
[2018-08-20] MEDS: CLOPIDOGREL BISULFATE 75 MG TABLET PO SCH (10:34)
[2018-08-20] MEDS: METOPROLOL SUCCINATE 25 MG TAB.SR.24H PO SCH (10:35)
[2018-08-20] MEDS: LORATADINE 10 MG TABLET PO SCH (10:36)
[2018-08-20] MEDS: FAMOTIDINE INJ/PF 20 MG/2 ML SDV IV SCH ×2 (10:36→21:56)
[2018-08-20] MEDS: ASPIRIN 81 MG TABLET, CHEWABLE PO SCH (10:36)
[2018-08-20] MEDS: FONDAPARINUX SODIUM INJ 2.5 MG/0.5 ML DISP.SYRIN SUBCUT SCH (10:37)
[2018-08-20] MEDS: DORZOLAMIDE HCL 2% OPH SOLN 10 ML OU SCH ×2 (12:01→21:57)
[2018-08-20] MEDS ORDERED: HYDRALAZINE HCL INJ/PF 20 MG/1 ML SDV IV PRN (12:52)
[2018-08-20] MEDS: ONDANSETRON HCL INJ/PF 4 MG/2 ML SDV IV PRN (13:16)
[2018-08-20] MEDS: NORMAL SALINE 1000 ML 1,000 ML IV PRN (13:18)
--- NOTE | 2018-08-20 17:56 | PDOC PROGRESS REPORT ---
Subjective Progress Note for:: 08/20/18 Subjective:: No adverse events overnight. He is very dysarthric and is having trouble communicating, and only seems to be able to order a couple of different sounds. When you ask him a yes or no question he does not nod his head yes or no but continues to make the 1 or 2 sounds that he seems to be able to make, so I do not know if he understands what I am saying. Blood pressure was high today we had to adjust his medication regimen to compensate. Reason For Visit: CVA,HTN,KAIT Physical Exam Vital Signs: Temp Pulse Resp BP Pulse Ox 98.8 F 86 18 136/66 H 100 08/20/18 15:20 08/20/18 15:20 08/20/18 15:20 08/20/18 15:20 08/20/18 15:20 Intake & Output 08/19/18 08/20/18 08/21/18 06:59 06:59 06:59 Intake Total 473 1473 1473 Balance 473 1473 1473 Weight 70.3 kg 73 kg General appearance: PRESENT: no acute distress, thin, well-developed Respiratory exam: PRESENT: clear to auscultation vidhi, symmetrical, unlabored. ABSENT: rales, rhonchi, wheezes Cardiovascular exam: PRESENT: RRR, +S1, +S2. ABSENT: diastolic murmur, rubs, systolic murmur Pulses: PRESENT: normal dorsalis pedis pul Vascular exam: PRESENT: normal capillary refill GI/Abdominal exam: PRESENT: distended, normal bowel sounds, soft. ABSENT: guarding, mass, organolmegaly, rebound, tenderness Extremities exam: ABSENT: full ROM - RUE contracted, no gross or fine motor skills. RLE 2/5. Musculoskeletal exam: ABSENT: ambulatory Neurological exam: PRESENT: alert, awake, oriented to person, other - Exam limited secondary to expressive aphasia; chronic right side weakness and contractures as described above from previous CVA. No facial asymmetry noted.. ABSENT: motor sensory deficit Psychiatric exam: PRESENT: agitated, anxious Skin exam: PRESENT: dry, intact, warm. ABSENT: cyanosis, rash Results Laboratory Results: 08/20/18 05:03 08/20/18 05:03 08/20/18 08/20/18 05:03 05:03 WBC 3.4 L RBC 4.01 L Hgb 11.0 L Hct 32.1 L MCV 80 MCH 27.5 MCHC 34.4 RDW 15.4 H Plt Count 245 Sodium 142.6 Potassium 3.9 Chloride 106 Carbon Dioxide 29 Anion Gap 8 BUN 18 Creatinine 1.16 Est GFR ( Amer) > 60 Est GFR (Non-Af Amer) > 60 Glucose 90 Calcium 8.6 08/16/18 08/16/18 08/16/18 14:45 14:45 20:05 Creatine Kinase 787 H 739 H CK-MB (CK-2) 0.91 Troponin I 0.032 08/16/18 08/17/18 08/18/18 20:05 05:28 05:50 Creatine Kinase 586 H 364 H CK-MB (CK-2) 0.66 Troponin I 0.027 08/19/18 05:20 Creatine Kinase 212 H CK-MB (CK-2) Troponin I Impressions: Chest X-Ray 08/16/18 14:26 IMPRESSION: NO ACUTE RADIOGRAPHIC FINDING IN THE CHEST. Head CT 08/16/18 14:26 IMPRESSION: Old infarct. No acute findings. EVIDENCE OF ACUTE STROKE: NO. Brain MRI with MRA 08/16/18 21:21 IMPRESSION: NORMAL MRA OF THE [place]. Neck MRA 08/16/18 21:22 IMPRESSION: NO SIGNIFICANT STENOSIS. Head MRI 08/17/18 08:05 IMPRESSION: Tiny nonhemorrhagic acute lacunar infarct along the medial margin of the chronic left MCA territory infarct. EVIDENCE OF ACUTE STROKE: YES. LEFT MCA. Assessment & Plan - Diagnosis (1) CVA (cerebral vascular accident) Qualifiers: CVA mechanism: thrombosis Precerebral and cerebral artery: middle cerebral artery Laterality of affected vessel: left Qualified Code(s): I63.312 - Cerebral infarction due to thrombosis of left middle cerebral artery Is this a current diagnosis for this admission?: Yes Plan: Continue risk factor modification. Plan will be to discharge to penitentiary facility tomorrow if his blood pressure has improved. (2) HTN (hypertension) Qualifiers: Hypertension type: unspecified Qualified Code(s): I10 - Essential (primary) hypertension Is this a current diagnosis for this admission?: Yes Plan: Had to adjust his blood pressure medication regimen today. If his blood pressure has come down some to acceptable level by tomorrow, we should be able to discharge him to a penitentiary facility. - Time Time Spent with patient: 25-34 minutes
[2018-08-20] MEDS: INSULIN REG, HUMAN 100 UNIT/ML 3 ML VIAL (PYX) SUBCUT PRN (21:56)
[2018-08-20] MEDS: TAMSULOSIN HCL 0.4 MG CAP.SR.24H PO SCH (21:56)
[2018-08-20] MEDS: ATORVASTATIN CALCIUM 80 MG TABLET PO SCH (21:56)
[2018-08-20] MEDS: LATANOPROST 0.005% OPH SOLN 2.5 ML OU SCH (21:57)
[2018-08-21] MEDS: GABAPENTIN 100 MG CAPSULE PO SCH ×2 (05:25→13:33)
[2018-08-21] MEDS: ASPIRIN 81 MG TABLET, CHEWABLE PO SCH (09:19)
[2018-08-21] MEDS: METOPROLOL SUCCINATE 25 MG TAB.SR.24H PO SCH (09:19)
[2018-08-21] MEDS: CLOPIDOGREL BISULFATE 75 MG TABLET PO SCH (09:19)
[2018-08-21] MEDS: LORATADINE 10 MG TABLET PO SCH (09:20)
[2018-08-21] MEDS: DOCUSATE SODIUM 100 MG CAPSULE PO SCH (09:20)
[2018-08-21] MEDS: FAMOTIDINE INJ/PF 20 MG/2 ML SDV IV SCH (09:20)
[2018-08-21] MEDS: FONDAPARINUX SODIUM INJ 2.5 MG/0.5 ML DISP.SYRIN SUBCUT SCH (09:20)
[2018-08-21] MEDS: DORZOLAMIDE HCL 2% OPH SOLN 10 ML OU SCH (09:24)
[2018-08-21] MEDS ORDERED: AMLODIPINE BESYLATE 10 MG TABLET PO SCH (10:00)
[2018-08-21 12:10] VITALS: BP 133/75
--- NOTE | 2018-08-21 17:45 | PDOC DISCHARGE SUMMARY ---
General - Admit/Disc Date/PCP Admission Date/Primary Care Provider: 08/16/18 20:37 RICHAR FITZPATRICK, Discharge Date: 08/21/18 - Discharge Diagnosis (1) CVA (cerebral vascular accident) Is this a current diagnosis for this admission?: Yes Summary: Has history of old stroke with some substantial deficits, apparently had worsening of his right-sided symptoms. Was already on aspirin and statin at home. We increased 1 of his blood pressure medications, his amlodipine, up to 10 mg a day. He refused to work with physical therapy or occupational therapy here. He was tolerating a modified diet, mechanical soft ground foods with regular liquids. His family said he would not work with physical therapy, and decided to take him home to do home health physical therapy. (2) HTN (hypertension) Is this a current diagnosis for this admission?: Yes Summary: We increased his Norvasc to 10 mg a day. Blood pressure control did improve some. He will also continue on his metoprolol he was on at home. - Additional Information Resuscitation Status: Full Code Discharge Diet: Cardiac, Diabetic Discharge Activity: Supervised Activity Prescriptions: Amlodipine Besylate [Norvasc 10 mg Tablet] 10 mg PO DAILY #30 tablet Home Medications: Aspirin [Ecotrin 325 mg EC Tablet] 325 mg PO DAILY 08/18/18 Atorvastatin Calcium [Lipitor 80 mg Tablet] 80 mg PO QHS 08/18/18 Brimonidine Tartrate/Timolol [Combigan 0.2%-0.5% Eye Drops] 1 drop OU Q12 08/18/18 Dorzolamide HCl/Pf [Dorzolamide 2% Eye Drop] 1 drop OU BID 08/18/18 Ergocalciferol (Vitamin D2) [Drisdol 50,000 unit (1.25MG) Capsule] 50,000 unit PO TU@1000 08/18/18 Latanoprost/Pf [Latanoprost 0.005% Eye Drop] 1 drop OU QHS 08/18/18 Loratadine [Claritin 10 mg Tablet] 10 mg PO DAILY 08/18/18 Metformin HCl [Metformin HCl ER] 500 mg PO QAM 08/18/18 Metoprolol Succinate [Toprol Xl 25 mg Tab.sr] 25 mg PO DAILY 08/18/18 Amlodipine Besylate [Norvasc 10 mg Tablet] 10 mg PO DAILY #30 tablet 08/21/18 History of Present Illness History of Present Illness: BERTHA WIGGINS JR is a 68 year old male who presented to the emergency room with his family complaining of new onset increased right-sided weakness with inability to walk and an associated new onset frequent cough exacerbated by attempts at eating and/or drinking. The new symptoms were noticed upon his waking this morning and have been continuously present without change since that time. 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 He denies current pain and agrees with the history of new changes. In the emergency room and CAT scan showed evidence of his previous left hemisphere middle cerebral artery infarct with no new changes or evidence of intracranial hemorrhage. With these findings it was felt patient should be admitted for further evaluation and treatment per the stroke protocol. Hospital Course Hospital Course: He was he was brought and evaluated and found to have a new lacunar infarct on MRI. He was already on appropriate medications, the only adjustment we can make for him was to increase his amlodipine. He was tolerating his modified diet. He has substantial deficits from his old stroke, residual right-sided weakness as well as a substantial dysarthria and aphasia. He refused to work with our therapist here, and eventually his family decided that he was not going to cooperate for physical therapy at a long term facility either, and they elected to take him home for home health and home physical therapy. Our discharge planners on trying to get him services at home to help his family. He was discharged today back home in stable condition. Physical Exam Vital Signs: Temp Pulse Resp BP Pulse Ox 98.5 F 84 16 133/75 H 99 08/21/18 15:02 08/21/18 15:02 08/21/18 15:02 08/21/18 10:36 08/21/18 15:02 Intake & Output 08/20/18 08/21/18 08/22/18 06:59 06:59 06:59 Intake Total 1473 1573 1355 Balance 1473 1573 1355 Weight 73 kg 72.4 kg General appearance: PRESENT: no acute distress, thin, well-developed Respiratory exam: PRESENT: clear to auscultation vidhi, symmetrical, unlabored. ABSENT: rales, rhonchi, wheezes Cardiovascular exam: PRESENT: RRR, +S1, +S2. ABSENT: diastolic murmur, rubs, systolic murmur Pulses: PRESENT: normal dorsalis pedis pul Vascular exam: PRESENT: normal capillary refill GI/Abdominal exam: PRESENT: distended, normal bowel sounds, soft. ABSENT: guarding, mass, organolmegaly, rebound, tenderness Extremities exam: ABSENT: full ROM - RUE contracted, no gross or fine motor movement noted. RLE 2/5. Musculoskeletal exam: ABSENT: ambulatory Neurological exam: PRESENT: alert, awake, oriented to person, other - Exam limited secondary to expressive aphasia; chronic right side weakness and co ntractures as described above from previous CVA. Psychiatric exam: PRESENT: agitated, anxious Skin exam: PRESENT: dry, intact, warm. ABSENT: cyanosis, rash Results Laboratory Results: 08/20/18 05:03 08/20/18 05:03 08/16/18 08/16/18 08/16/18 14:45 14:45 20:05 Creatine Kinase 787 H 739 H CK-MB (CK-2) 0.91 Troponin I 0.032 08/16/18 08/17/18 08/18/18 20:05 05:28 05:50 Creatine Kinase 586 H 364 H CK-MB (CK-2) 0.66 Troponin I 0.027 08/19/18 05:20 Creatine Kinase 212 H CK-MB (CK-2) Troponin I Impressions: Chest X-Ray 08/16/18 14:26 IMPRESSION: NO ACUTE RADIOGRAPHIC FINDING IN THE CHEST. Head CT 08/16/18 14:26 IMPRESSION: Old infarct. No acute findings. EVIDENCE OF ACUTE STROKE: NO. Brain MRI with MRA 08/16/18 21:21 IMPRESSION: NORMAL MRA OF THE [place] OF [place]. Neck MRA 08/16/18 21:22 IMPRESSION: NO SIGNIFICANT STENOSIS. Head MRI 08/17/18 08:05 IMPRESSION: Tiny nonhemorrhagic acute lacunar infarct along the medial margin of the chronic left MCA territory infarct. EVIDENCE OF ACUTE STROKE: YES. LEFT MCA. Qualifiers - * PATIENT BEING DISCHARGED WITH ANY OF THE FOLLOWING DIAGNOSIS: Stroke Stroke Pt being discharged on Anti-thrombolytic therapy?: Yes Stroke Pt being discharged on Anti-coagulation therapy?: No Reason(s) for not prescribing Anti-coagulation therapy:: Not indicated Stroke Pt being discharged on Statins?: Yes
== END 2018-08-21 17:04 | disposition home health service (06) | DRG 65 ==
LOC: ER 14:16 → EH 20:37 → 3W 23:10
PROVIDERS: ADMIT Emergency Medicine; ATTEND Emergency Medicine
DX: I63.81 Other cerebral infarction due to occlusion or stenosis of small artery (principal); I69.351 Hemiplegia and hemiparesis following cerebral infarction affecting right dominant side; R47.02 Dysphasia; I25.10 Atherosclerotic heart disease of native coronary artery without angina pectoris; I69.320 Aphasia following cerebral infarction; E78.5 Hyperlipidemia, unspecified; I10 Essential (primary) hypertension; E11.9 Type 2 diabetes mellitus without complications; K21.9 Gastro-esophageal reflux disease without esophagitis; N40.0 Benign prostatic hyperplasia without lower urinary tract symptoms; D72.829 Elevated white blood cell count, unspecified; Z88.6 Allergy status to analgesic agent; Z83.3 Family history of diabetes mellitus
CPT/HCPCS: 36415; 70450; 70544; 70547; 70551; 71045; 80048; 80053; 80061; 81001; 82550; 82553; 82962; 83036; 83690; 84484; 85025; 85027; 85610; 85730; 87040; 93005; 93010; 96365; 99285; C1758; J0360; J0696; J1652; J1815; J2405; J3490; J7030; S0028

== ENCOUNTER → 2018-11-20 | Outpatient (CLI) | payer OTHER ==
[~2018-11-20] MED LIST: AMINOPHYLLINE INJ/PF 250 MG/10 ML SDV IV ONE; REGADENOSON INJ 0.4 MG/5 ML DISP.SYRIN IV ONE
--- NOTE | 2018-11-20 16:22 | DRAGON STRESS TEST REPORT ---
INTRAVENOUS LEXISCAN CARDIOLITE STRESS TEST USING SINGLE PHOTON EMMISION COMPUTERIZED TOMOGRAPHIC. DATE OF PROCEDURE: November 20, 2018, INDICATION : Chest pain CARDIAC RISK FACTORS: Diabetes, hypertension, dyslipidemia RESTING EKG: Sinus rhythm without any baseline ST-T wave changes STRESS EKG: No significant ST segment changes noted with LexiScan bolus REASON FOR TERMINATION: Protocol. PROCEDURE REPORT: Baseline heart rate 61 beats per minute with blood pressure of 169/88. Patient had no significant complaints. Patient was bolused with Lexiscan 0.4 mg intravenously followed by saline bolus. Heart rate at 2 minutes post bolus 69 with a blood pressure of 167/80. 3 minutes post bolus heart rate 68 with blood pressure of 160/79. No significant EKG changes were noted. Patient had no significant complaints during the procedure or postprocedure. CONCLUSIONS: Normal EKG and hemodynamic response to IV LexiScan. NUCLEAR DATA: At rest the patient was given 11.57 millicuries of technetium 99 sestamibi injected intravenously. As per protocol rest gated SPECT images were obtained. On day of stress test, the patient was given intravenous LexiScan at a dose of 0.4 mg in 5 mL intravenously, followed by flush with normal saline. Subsequently the stress dose of 33.6 millicuries of technetium 99 sestamibi was injected intravenously. As per protocol stress gated images were obtained. NUCLEAR INTERPRETATION: Both raw and processed data were used for interpretation. Visual, qualitative, computer-generated quantitative data was used. There was good myocardial uptake of technetium compound. Motion artifact and soft tissue attenuations were noted. Increased visceral uptake was noted. No definitive areas of transient perfusion defect noted, No definitive areas of fixed perfusion defect or scars noted. EKG gated imaging showed LV EF at 53 %, rest and stress gated EF similar visually. T. I D. ratio was 1.05. Lung heart ratio noted to be within normal limits 0.31. No significant extracardiac and abnormal radiotracer activities were noted. RV free wall uptake was noted to be WNL. IMPRESSION: Also refer to comments under nuclear interpretation. Also test results needs to be interpreted in the context of pretest probability. 1. No definitive areas of transient perfusion defect noted. 2. There is no definitive scintigraphic evidence of myocardial infarction/scar. 3. EKG gated imaging shows left ventricular ejection fraction of approx. 53 %. 4. Clinical correlation requested as worse disease and or balanced ischemia could be missed. In approximately 10% of the cases Lexiscan may not cause adequate vasodilatory stress. RECOMMENDATIONS: Aggressive risk factor modification and medical management. Further evaluation may be needed if continued symptoms or other high risk indicators are noted on clinical evaluation. Close cardiology follow-up is also recommended. Clinical correlation with echocardiogram derived ejection fraction. Inability to exercise by itself can lead to increased cardiovascular event risks. Consider cardiology consultation and or follow-up if clinically indicated. I am available for cardiology evaluation and consultation if requested by the first aid nurse, unless patient already has a soaping machine back tender. Dr. Lyubov Contreras. MRCP Board certified in cardiology and sleep medicine. Board certified in nuclear cardiology, adult echocardiography. LEANNE
== END ==
LOC: RAD 07:00
PROVIDERS: ATTEND Physician Assistant Medical
DX: R07.89 Other chest pain (principal)
CPT/HCPCS: 93017; 78452; A9500; J2785; J0280; Q9969